=== PATIENT | male | born 1940 | race Caucasian/White ===

== ENCOUNTER 2019-08-21 11:00 | Outpatient (RCR) | payer SELFPAY | END 2019-09-20 00:01 | LOC: CR 11:00 | PROVIDERS: Family Provider Family Medicine; Referring Provider Internal Medicine Cardiovascular Disease; Visit Provider Family Medicine | DX: Z48.812 Encounter for surgical aftercare following surgery on the circulatory system (principal) ==

== ENCOUNTER 2019-09-28 10:27 | Outpatient (RCR) | payer SELFPAY | END 2019-10-21 23:59 | disposition home or self-care (01) | LOC: CR 10:27 | PROVIDERS: Family Provider Family Medicine; PCP Family Medicine; Referring Provider Internal Medicine Cardiovascular Disease; Visit Provider Internal Medicine Cardiovascular Disease | DX: Z95.1 Presence of aortocoronary bypass graft (principal) ==

== ENCOUNTER 2019-10-24 12:04 | Outpatient (RCR) | payer SELFPAY | END 2019-11-19 23:59 | disposition home or self-care (01) | LOC: CR 12:04 | PROVIDERS: Family Provider Family Medicine; PCP Family Medicine; Referring Provider Internal Medicine Cardiovascular Disease; Visit Provider Internal Medicine Cardiovascular Disease | DX: Z95.1 Presence of aortocoronary bypass graft (principal) ==

== ENCOUNTER 2019-11-21 11:46 | Outpatient (RCR) | payer SELFPAY | END 2019-12-20 23:59 | disposition home or self-care (01) | LOC: CR 11:46 | PROVIDERS: Family Provider Family Medicine; PCP Family Medicine; Referring Provider Internal Medicine Cardiovascular Disease; Visit Provider Internal Medicine Cardiovascular Disease | DX: Z95.1 Presence of aortocoronary bypass graft (principal) ==

== ENCOUNTER 2020-02-20 13:24 | Outpatient (RCR) | payer SELFPAY | END 2020-03-20 23:59 | disposition home or self-care (01) | LOC: CR 13:24 | PROVIDERS: Family Provider Family Medicine; PCP Nurse Practitioner Family; Referring Provider Internal Medicine Cardiovascular Disease; Visit Provider Internal Medicine Cardiovascular Disease | DX: Z95.1 Presence of aortocoronary bypass graft (principal) ==

== ENCOUNTER → 2020-03-29 10:54 | Outpatient (BNVA) | payer MEDICARE, SELFPAY | PROVIDERS: Family Provider Family Medicine; PCP Nurse Practitioner Family; Visit Provider Urology | DX: N47.1 Phimosis (principal); Z85.46 Personal history of malignant neoplasm of prostate | CPT/HCPCS: 81001 ==

== ENCOUNTER 2020-04-23 09:42 | Outpatient (CLI) | payer MEDICARE, SELFPAY ==
--- NOTE | 2020-04-23 09:53 | CT_ITS ---
WS: [id number] CT ABDOMEN TECHNIQUE: Noncontrast CT of the abdomen with coronal and sagittal reformatted images. CLINICAL INFORMATION: AORTIC ANEURYSM OF UNSPECIFIED SITE, WITHOUT RUPTURE COMPARISON: CTA runoff May 13, 2007 DLP: 915.[address] scans at [facility] use at least one of these dose optimization techniques: automat ed exposure control; mA and/or kV adjustment per patient size (includes targeted exams where dose is matched to clinical indication); or iterative reconstruction. FINDINGS: Infrarenal abdominal aorta measures approximately 3.6 x 3.8 cm AP by transverse. This is progressed s 2006. Noncontrast liver is normal. Normal gallbladder. Lung bases are well aerated. Noncontrast spleen is normal. Normal GE junction. Mild renal cortical atrophy. No hydronephrosis. Noncontrast pancreas is normal. N o upper abdominal lymphadenopathy. Lumbar curve convex left. CT/CT abdomen wo con [id number] IMPRESSION: 1. Infrarenal abdominal aortic aneurysm measuring 3.6x3.8 cm AP by transverse. This is progressed since 2006. 2. No hydronephrosis in either kidney. 3. No other significant findings.
== END 2020-04-23 09:43 | disposition home or self-care (01) ==
LOC: RADWPI 09:48
PROVIDERS: Family Provider Family Medicine; PCP Nurse Practitioner Family; Visit Provider Nurse Practitioner Family
DX: I71.4 Abdominal aortic aneurysm, without rupture (principal)
CPT/HCPCS: 74150

== ENCOUNTER 2020-04-24 11:19 | Outpatient (RCR) | payer SELFPAY | END 2020-05-21 23:59 | disposition home or self-care (01) | LOC: CR 11:19 | PROVIDERS: Family Provider Family Medicine; PCP Nurse Practitioner Family; Referring Provider Internal Medicine Cardiovascular Disease; Visit Provider Internal Medicine Cardiovascular Disease | DX: Z95.1 Presence of aortocoronary bypass graft (principal) ==

== ENCOUNTER 2020-05-22 14:24 | Outpatient (RCR) | payer SELFPAY | END 2020-06-20 23:59 | disposition home or self-care (01) | LOC: CR 14:24 | PROVIDERS: Family Provider Family Medicine; PCP Nurse Practitioner Family; Referring Provider Internal Medicine Cardiovascular Disease; Visit Provider Internal Medicine Cardiovascular Disease | DX: Z95.1 Presence of aortocoronary bypass graft (principal) ==

== ENCOUNTER 2020-06-22 11:09 | Outpatient (RCR) | payer SELFPAY | END 2020-07-21 23:59 | disposition home or self-care (01) | LOC: CR 11:09 | PROVIDERS: Family Provider Family Medicine; PCP Nurse Practitioner Family; Referring Provider Internal Medicine Cardiovascular Disease; Visit Provider Internal Medicine Cardiovascular Disease | DX: I25.810 Atherosclerosis of coronary artery bypass graft(s) without angina pectoris (principal) ==

== ENCOUNTER 2020-07-22 13:22 | Outpatient (RCR) | payer SELFPAY | END 2020-08-20 23:59 | disposition home or self-care (01) | LOC: CR 13:22 | PROVIDERS: Family Provider Family Medicine; PCP Nurse Practitioner Family; Referring Provider Internal Medicine Cardiovascular Disease; Visit Provider Internal Medicine Cardiovascular Disease | DX: Z95.1 Presence of aortocoronary bypass graft (principal) ==

== ENCOUNTER 2020-08-23 13:22 | Outpatient (RCR) | payer SELFPAY | END 2020-09-20 23:59 | disposition home or self-care (01) | LOC: CR 13:22 | PROVIDERS: Family Provider Family Medicine; PCP Nurse Practitioner Family; Referring Provider Internal Medicine Cardiovascular Disease; Visit Provider Internal Medicine Cardiovascular Disease | DX: Z95.1 Presence of aortocoronary bypass graft (principal) ==

== ENCOUNTER 2020-09-21 13:13 | Outpatient (RCR) | payer SELFPAY | END 2020-10-21 23:59 | disposition home or self-care (01) | LOC: CR 13:13 | PROVIDERS: Family Provider Family Medicine; PCP Nurse Practitioner Family; Referring Provider Internal Medicine Cardiovascular Disease; Visit Provider Internal Medicine Cardiovascular Disease | DX: Z95.1 Presence of aortocoronary bypass graft (principal) ==

== ENCOUNTER 2020-10-23 10:45 | Outpatient (RCR) | payer SELFPAY | END 2020-11-18 23:59 | disposition home or self-care (01) | LOC: CR 10:45 | PROVIDERS: Family Provider Family Medicine; PCP Nurse Practitioner Family; Referring Provider Internal Medicine Cardiovascular Disease; Visit Provider Internal Medicine Cardiovascular Disease | DX: Z95.1 Presence of aortocoronary bypass graft (principal) ==

== ENCOUNTER 2020-11-19 10:44 | Outpatient (RCR) | payer SELFPAY | END 2020-12-19 23:59 | disposition home or self-care (01) | LOC: CR 10:44 | PROVIDERS: Family Provider Family Medicine; PCP Nurse Practitioner Family; Referring Provider Internal Medicine Cardiovascular Disease; Visit Provider Internal Medicine Cardiovascular Disease | DX: Z95.1 Presence of aortocoronary bypass graft (principal) ==

== ENCOUNTER 2020-12-20 08:36 | Outpatient (RCR) | payer SELFPAY | END 2021-01-18 23:59 | disposition home or self-care (01) | LOC: CR 08:36 | PROVIDERS: Family Provider Family Medicine; PCP Nurse Practitioner Family; Referring Provider Internal Medicine Cardiovascular Disease; Visit Provider Internal Medicine Cardiovascular Disease | DX: Z95.1 Presence of aortocoronary bypass graft (principal) ==

== ENCOUNTER 2021-01-07 11:33 | Outpatient (CLI) | payer MEDICARE, SELFPAY ==
--- NOTE | 2021-01-07 10:15 | ECG_ITS ---
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 Baseline heart rate was 67 beats per minute. Baseline blood pressure was 144/79 millimeters of mercury. Target heart rate was 140 beats per minute. Maximum heart rate achieved was 122, which was 87 % of the target heart rate. Maximum blood pressure was 197/79 millimeters of mercury. Total exercise time was 5 minutes 40 seconds. Maximum METs achieved was 7.0, maximum VO2 was 24.5. The reason for ending the test was maximum effort achieved. The patient complained of shortness of breath during the stress test, which then resolved at the end of the test. ELECTROCARDIOGRAM: BASELINE: Sinus rhythm, normal axis, no significant ST-T changes at the baseline noted. EXERCISE: At the peak exercise level, inferolateral significant ST-T changes suggestive of ischemia noted. RECOVERY: During the recovery period, heart rate dropped appropriately. In fourth minute of recovery ST changes started normalizing. CONCLUSION: 1. Exercise capacity fair. 2. Heart rate response was appropriate. 3. Blood pressure response was hypertensive. 4. Symptoms not suggestive of ischemia. 5. Electrocardiogram portion of the stress test is suggestive of ischemia. 6. Nuclear scan will be documented separately. Electronically Signed On 02-05-2021 20:20:58 CDT by DIANNA GRIFFIN [id number]
[2021-01-07 10:16] VITALS: BMI 28.1
--- NOTE | 2021-01-07 10:16 | NMCV_ITS ---
NM flory perf SPECT r/s* [id number] Crispin Serrano Age: 80 Gender: M : 1940 Exam Date: 01/07/2021 10:16 Ordering Phys: Teddy Mae MD Technologist: AUSTIN Andrade Exam Location: [facility] Indications: DYSPNEA STRESS TEST Please see separate stress test report in [facility] for full findings IMAGE PROTOCOL Rest/Stress 1 Day Radiopharmaceutical Dose (mCi) Administration Site Administered by Rest: Tc-99m 7.9 IV AUSTIN Andrade Sestamibi Stress:Tc-99m 31.8 IV [place] Tan Sestamibi Rest: 07-Jan-2021 60 Discovery 630 Stress: 07-Jan-2021 30 Discovery 630 Radiopharmaceutical was injected at 85 % maximum heart rate. Images obtained in supine and prone position. SPECT RESULTS Technical Quality: Excellent Raw Data Analysis: Normal Image Corrections: No attenuation or motion correction applied Summed Stress Score: 4 Summed Rest Score: 0 Summed Difference Score: 4 PERFUSION FINDINGS SPECT images demonstrate homogeneous tracer distribution throughout the myocardium. FUNCTIONAL RESULTS (calculated via Gated SPECT) Stress Image LV EF (%): 73 Stress EDV (mL):74 TID: 0.93 Stress ESV (mL):20 Rest Image LV EF (%): 73 FUNCTIONAL FINDINGS: There is normal left ventricular systolic function. IMPRESSIONS Myocardial perfusion imaging is normal. EKG segment will be documented separately. Ange Conner MD (Electronically Signed) Final Date: 07 January 2021 21:20 S
[2021-01-07 12:39] VITALS: BP 133/78; PULSE 77
== END 2021-01-07 11:34 | disposition home or self-care (01) ==
LOC: CDL 11:33
PROVIDERS: PCP Family Medicine; Visit Provider Family Medicine
DX: I71.4 Abdominal aortic aneurysm, without rupture (principal); R06.00 Dyspnea, unspecified; I25.10 Atherosclerotic heart disease of native coronary artery without angina pectoris
CPT/HCPCS: 78452; 93017; A9500

== ENCOUNTER 2021-01-09 07:47 | Outpatient (CLI) | payer MEDICARE, SELFPAY ==
--- NOTE | 2021-01-09 07:54 | USCV_ITS ---
Crispin Serrano Age: 80 Gender: M : 1940 Exam Date: 01/09/2021 08:23 Ordering Phys: Teddy Mae MD Technologist: KELSEY [place]am [place] [facility] [place]ication: Dypsnea, Coronary artery disease BP: 105 / 62 HR: 49 Rhythm: Sinus Technical Quality: Adequate MEASUREMENTS (Male / Female) Normal Values 2D ECHO LV Diastolic Diameter PLAX 4.0 cm 4.2 - 5.9 / 3.9 - 5.3 cm LV Systolic Diameter PLAX 2.1 cm LV Chamber Size 4.2 cm IVS Diastolic Thickness 1.5 cm 0.6 - 1.0 / 0.6 - 0.9 cm IVS Systolic Thickness 2.0 cm LVPW Diastolic Thickness 1.1 cm 0.6 - 1.0 / 0.6 - 0.9 cm LVPW Systolic Thickness 1.5 cm RV Chamber Size 2.7 cm LVOT Diameter 2.1 cm LV Ejection Fraction 2D Teich 79.8 % LV Ejection Fraction MOD 2C 63.0 % LV Ejection Fraction 2C AL 66.5 % LA Diameter 3.5 cm LA Width 3.1 cm LA Height 5.3 cm RA Width 3.3 cm RA Height 4.9 cm Aorta at Sinotubular Diameter 2.6 cm M-MODE LV Diastolic Diameter MM 4.0 cm 4.2 - 5.9 / 3.9 - 5.3 cm LV Systolic Diameter MM 2.7 cm LV Ejection Fraction MM Teich 59.5 % IVS Diastolic Thickness MM 1.4 cm 0.6 - 1.0 / 0.6 - 0.9 cm IVS Systolic Thickness MM 1.7 cm LVPW Diastolic Thickness MM 1.9 cm 0.6 - 1.0 / 0.6 - 0.9 cm LVPW Systolic Thickness MM 2.1 cm Aortic Annulus Diameter 3.5 cm LA Ao Ratio MM 1.2 MV E Point Septal Separation 0.5 cm DOPPLER AV Peak Velocity 252.3 cm/s LVOT Peak Velocity 71.0 cm/s AV Area Cont Eq vti 1.1 cm squared AV Area Cont Eq pk 1.0 cm squared MV Area PHT 2.7 cm squared Mitral E to A Ratio 1.0 MV E' Velocity 34.0 cm/s Mitral E to MV E' Ratio 9.2 Mitral E to LV E' Lateral Ratio 7.3 Mitral E to LV E' Septal Ratio 12.4 TR Peak Velocity 230.3 cm/s TR Peak Gradient 21.2 mmHg TR Mean Velocity 191.6 cm/s TR Mean Gradient 15.2 mmHg TR Velocity Time Integral 82.2 cm TV Peak E Velocity 44.0 cm/s Right Atrial Pressure 3.0 mmHg Pulmonary Artery Systolic Pressu 24.2 mmHg PV Peak Velocity 50.0 cm/s RV Acceleration Time 0.1 s RV Ejection Time 0.3 s RV AcT/ET 0.2 FINDINGS Left Ventricle Normal left ventricular size and systolic function, EF 61 %. No regional wall motion abnormalities. Mild left ventricular hypertrophy. Right Ventricle The right ventricle is normal in size and function. Right Atrium Mildly increased right atrial size. Left Atrium Mildly increased left atrial size. Mitral Valve Trace mitral valve regurgitation. Aortic Valve Moderate aortic valve stenosis, mean gradient 14.4 mmHg, JEANNINE 1.1 cm squared. Mild aortic valve regurgitation. Tricuspid Valve [id number] tricuspid valve regurgitation. Pulmonic Valve Pulmonic valve not well visualized. Pericardium Normal pericardium without effusion. Aorta Normal ascending aorta dimension. CONCLUSIONS Normal left ventricular size and systolic function, EF 61 %. No regional wall motion abnormalities. Mild left ventricular hypertrophy. Mild biatrial enlargementTrace mitral valve regurgitation. Moderate aortic valve stenosis, mean gradient 14.4 mmHg, JEANNINE 1.1 cm squared. Mild aortic valve regurgitation. Iilh-kz-lcjlvehe tricuspid valve regurgitation. Estimated pulmonary peak systolic pressure 24 mmHg. There is no pericardial effusion. There are no intracardiac masses. Compared to the study from 07/21/2019, the aortic valve stenosis appears to be less severe Dr Joe Centeno MD [facility] (Electronically Signed) Final Date: 10 January 2021 00:15 S
--- NOTE | 2021-01-09 07:54 | USCV_ITS ---
Crispin Serrano Age: 80 Gender: M : 1940 Exam Date: 01/09/2021 08:09 Ordering Phys: Teddy Mae MD Technologist: Kareen Martin Exam Location: [facility] [place] Indication: AAA HISTORY: Diameter (cm) AP x Transverse x Length Velocity (cm/s) Waveform Prox Aorta: 2.07 x 2.37 x 66.10 Mid Aorta: 1.59 x 1.88 x 84.30 Distal Aorta: 3.68 x 3.71 x 5.54 94.20 Right Iliac Prox: 1.05 x 1.20 x 74.40 Left Iliac Prox: 1.00 x 1.05 x 127.30 Stent Prox Landing x x Aneurysmal Sac Max x x Lt Lat Sac Dim Rt Lat Sac Dim Stent Dist Landing x x Right Iliac Stent x x Left Iliac Stent x x Right Renal Art Left Renal Art FINDINGS: Comparison: 12-10-2018. See measurements listed above. Aneurysmal dilatation of the distal abdominal aorta Mild to moderate diffuse plaques in the abdominal aorta CONCLUSIONS Fusiform aneurysm of the infrarenal aorta, measuring 3.68 x 3.71 cm Mild to moderate diffuse plaques in the abdominal aorta Normal proximal common iliac artery dimensions No evidence of stenosis in the abdominal aorta Compared to the study from 12/10/2018, aneurysm size is slightly smaller Dr Joe Centeno MD [facility] (Electronically Signed) Final Date: 10 January 2021 23:12 S
== END 2021-01-09 07:48 | disposition home or self-care (01) ==
LOC: US 07:50
PROVIDERS: PCP Family Medicine; Visit Provider Family Medicine
DX: I71.4 Abdominal aortic aneurysm, without rupture (principal); R06.00 Dyspnea, unspecified; I25.10 Atherosclerotic heart disease of native coronary artery without angina pectoris; I08.3 Combined rheumatic disorders of mitral, aortic and tricuspid valves
CPT/HCPCS: 93306; 93978

== ENCOUNTER 2021-01-21 10:47 | Outpatient (RCR) | payer SELFPAY | END 2021-02-18 23:59 | disposition home or self-care (01) | LOC: CR 10:47 | PROVIDERS: Family Provider Family Medicine; PCP Family Medicine; Referring Provider Internal Medicine Cardiovascular Disease; Visit Provider Internal Medicine Cardiovascular Disease | DX: Z95.1 Presence of aortocoronary bypass graft (principal) ==

== ENCOUNTER → 2021-01-25 09:54 | Outpatient (BNVA) | payer OTHER, SELFPAY | PROVIDERS: Family Provider Family Medicine; PCP Family Medicine; Visit Provider Family Medicine | DX: Z01.812 Encounter for preprocedural laboratory examination (principal); Z20.822 Contact with and (suspected) exposure to COVID-19 | CPT/HCPCS: 87635 ==

== ENCOUNTER 2021-01-31 13:00 | Outpatient (CLI) | payer MEDICARE, SELFPAY ==
--- NOTE | 2021-01-31 13:03 | CT_ITS ---
WS: [id number] CT CHEST WITHOUT INTRAVENOUS CONTRAST HISTORY: Dyspnea for 3 weeks. TECHNIQUE: Contiguous 5 mm axial imaging performed on the thorax. Coronal and sagittal reformats are submitted. All CT scans at [facility] use at least one of these dose optimization techniq ues: automated exposure control; mA and/or kV adjustment per patient size (includes targeted exams wh ere dose is matched to clinical indication); or iterative reconstruction. CONTRAST: None DLP: 730.43 mGy.cm COMPARISON: Chest radiograph 12/23/2018 Lungs and central airway: No pulmonary mass or pneumonia. Focal area of scarring in the anterior RIGH T middle lobe similar to the prior study dated 2019. Intrapulmonary lymph node along minor fissure measures 5 mm. Additional intrapulmonary lymph node along the LEFT major fissure measures 6 mm. Pleura: Normal. No pleural effusion. Heart and pericardium: Prior CABG. There is extensive coronary artery calcifications in [place]. Heart size is not significantly enlarged. Pulmonary artery size is equal to the aorta. Heavy calcification is noted along the aortic valve plane. Mediastinum and chidi: Benign calcified lymph nodes in the mediastinum. Vessels: Moderate atherosclerosis aorta. No aneurysm. Chest wall and lower neck: Prior CABG. Upper abdomen: Small hiatal hernia. Mild perinephric stranding around each kidney with no obstruction . Heavy calcification is noted involving the origins of the renal arteries. Osseous structures: No destructive process. CT/CT chest wo con [id number] IMPRESSION: 1. No pulmonary mass or pneumonia. 2. Prior CABG. 3. Heavy calcification along the aortic valve plane. Consider evaluation by ec hocardiogram to exclude aortic stenosis. 4. Atherosclerosis thoracic aorta. 5. Heavy calcification origin of the renal arteries.
--- NOTE | 2021-01-31 13:35 | PFTS_ITS ---
Date of Study:01/31/21 Date of Dictation: 02/01/2021 MECHANICS: Prebronchodilator forced vital capacity (FVC) is normal. Prebronchodilator forced expiratory volume in one second (FEV1) is normal. FEV1/FVC is normal. There is no postbronchodilator study performed. FLOW VOLUME LOOP: Normal . LUNG VOLUMES: Total lung capacity (TLC) is normal. Residual volume (RV) is normal. DIFFUSING CAPACITY FOR CARBON MONOXIDE: Normal . INTERPRETATION: The pulmonary function tests are normal. MTDD
--- NOTE | 2021-02-05 20:34 | PM.PN ---
Subjective Subjective: Interval history: Spoke to Crispin any regarding EKG portion of the stress test which was positive. He is symptomatic with worsening of shortness of breath which could be due to ischemia. I would therefore proceed with left heart cath. I have spoken to the patient by myself over the phone he is agreeable to it. We will schedule him for outpatient angiogram. Attestations Medical Necessity Statement*: Patient will be set up for angiogram due to positive stress test Coding Level of Care Code Acute Account Manager Sales Representative for Arsalan Olvera
== END 2021-01-31 13:01 | disposition home or self-care (01) ==
LOC: RT 13:01
PROVIDERS: PCP Family Medicine; Visit Provider Family Medicine
DX: R06.00 Dyspnea, unspecified (principal); Z95.1 Presence of aortocoronary bypass graft; I70.0 Atherosclerosis of aorta; I70.1 Atherosclerosis of renal artery
CPT/HCPCS: 71250; 94010; 94726; 94729

== ENCOUNTER → 2021-02-14 10:20 | Outpatient (BNVA) | payer MEDICARE, SELFPAY | PROVIDERS: PCP Family Medicine; Visit Provider Internal Medicine Cardiovascular Disease | DX: I25.10 Atherosclerotic heart disease of native coronary artery without angina pectoris (principal); Z01.818 Encounter for other preprocedural examination; Z20.822 Contact with and (suspected) exposure to COVID-19 | CPT/HCPCS: 80048; 85025; 85610; 87635 ==

== ENCOUNTER 2021-02-19 14:23 | Outpatient (RCR) | payer SELFPAY | END 2021-03-20 23:59 | disposition home or self-care (01) | LOC: CR 14:23 | PROVIDERS: PCP Family Medicine; Referring Provider Internal Medicine Cardiovascular Disease; Visit Provider Internal Medicine Cardiovascular Disease | DX: Z95.1 Presence of aortocoronary bypass graft (principal) ==

== ENCOUNTER 2021-02-21 13:00 | Observation (INO) | payer MEDICARE, SELFPAY ==
[2021-02-21] VITALS (15 sets, daily range): BP systolic 113–153; BP diastolic 55–81; PULSE 60–72; RESP 12–22; TEMP 36.3–36.7; O2SAT 94–97; BMI 28.7
[2021-02-21] MEDS: diphenhydrAMINE 50 mg Capsule PO (09:08)
--- NOTE | 2021-02-21 10:26 | P.HP_ITS ---
Same Day Surgery H&P Indication for Procedure/HPI DATE OF PROCEDURE: February 21, 2021 CHIEF COMPLAINT/INDICATIONFOR SURGICAL PROCEDURE: I am expecting his stay not to cross more than 1 midnight PREOP DIAGNOSIS: Abnormal treadmill response, worsening of shortness of breath, chest press PLANNED PROCEDRUE: Operation Date: 02/21/21 08:30 Proposed Procedures p left Cardiac Catheterization 11229 [id number](Left) - Ange Conner MD Pleasant 81-year-old male past medical history significant for coronary artery bypass surgery 3 years ago, history of mild aortic stenosis, hypertension hyperlipidemia underwent extensive work-up including pulmonary for worsening of shortness of breath and deterioration of function in general along with chest pressure. Pulmonary function tests were not suggestive of pulmonary etiology however treadmill nuclear stress test showed inferolateral significant ST depression suggestive of possible ischemia in the inferolateral territory. It is the reason patient was brought in today for left heart cath. Patient has been explained all risk benefit and alternative for the procedure. He understand the risk for urgent emergent bypass, anaphylaxis, contrast-induced nephropathy, stroke, major minor bleed requiring transfusion and worse case scenario . He would like to proceed with it. We will also assess LV function with aortic valve gradient since he has aortic stenosis. Medications/Allergies* Home Medications Medication Instructions Recorded Confirmed Type cholecalciferol (vitamin D3) 25 1,000 unit PO DAILY 11/24/19 02/20/21 History mcg (1,000 unit) capsule coenzyme Q10 100 mg capsule 100 mg PO DAILY 11/24/19 02/20/21 History omega-3 fatty acids 1,000 mg 1,000 mg PO DAILY 11/24/19 02/20/21 History capsule cetirizine 10 mg tablet 5 mg PO DAILY PRN 03/29/20 02/20/21 History lactobacillus combination no.8 3 3,000 mmu cells PO DAILY 03/29/20 02/20/21 History billion cell capsule Zetia 10 mg PO DAILY 02/20/21 02/20/21 History amlodipine 2.5 mg PO DAILY 02/20/21 02/20/21 History aspirin 325 mg PO DAILY 02/20/21 02/20/21 History Allergies/Adverse Reactions Allergy/AdvReac Type Severity Reaction Status Date / Time atorvastatin [From Lipitor] Allergy Unknown Unknown Verified 04/02/20 14:32 Iodinated Contrast Media Allergy Unknown Unknown Verified 04/02/20 14:32 iodine Allergy Unknown Unknown Verified 04/02/20 14:32 rosuvastatin [From Crestor] Allergy Unknown Unknown Verified 04/02/20 14:32 simvastatin [From Zocor] Allergy Unknown Unknown Verified 04/02/20 14:32 Pertinent History/Comorbid Conditions* Medical History (Updated 05/25/20 @ 18:07 by Ange Conner MD) AAA (abdominal aortic aneurysm) CAD (coronary artery disease) History of CVA (cerebrovascular accident) History of prostate cancer History of TIA (transient ischemic attack) HTN (hypertension) Hx of sigmoidoscopy Hyperlipidemia Murmur Phimosis Surgical History (Updated 03/29/20 @ 17:04 by Stepan Best MD) History of open heart surgery S/P CABG (coronary artery bypass graft) S/P prostatectomy S/P shoulder surgery S/P tonsillectomy and adenoidectomy S/P vasectomy Family History (Updated 11/24/19 @ 10:29 by Daysi Lara LPN) Father, Age 72 [place] Mother, Age 102 dementia Diabetes Mother CAD (coronary artery disease) Dementia Mother Myocardial infarction Father Grandfather Social History Smoking and tobacco status: never smoked Alcohol intake: never Marital status: Current occupational status: retired History of recent travel: No Pertinent Exam Findings alert, oriented x 3 and clear to auscultation bilaterally GENERAL: Patient is alert, awake and oriented x3. NECK: No jugular vein distension. HEENT: No cyanosis. No icterus. No pallor. HEART: Regular S1 and S2. 2/6 murmur, rub or gallop. LUNGS: Clear to auscultate bilaterally. ABDOMEN: Soft, nontender and nondistended. Positive bowel sounds. No guarding, rebound or tenderness. CENTRAL NERVOUS SYSTEM: Grossly nonfocal. EXTREMITIES: Lower extremities with trace edema bilaterally. Conscious Sedation Assessment PATIENT ASSESSED PRIOR TO SEDATION, WITH NO CHANGE NOTED: Yes AIRWAY EVAL/ANESTHESIA PLAN: ASA II and Risks, benefits & alternatives of sedation and/or procedure discussed Recommendations Surgery/Procedure today Coding Level of Care Code Acute Digital Publishing Specialist for Arsalan Olvera
--- NOTE | 2021-02-21 11:17 | SUR.PHASEI ---
RECOVERY HOLDING NOTE THE PATIENT WAS WAKEN OFF THE TABLE FOR A STEMI. RECEIVED INTO CPRU ROOM 4 WITH SPOUSE AT BEDSIDE. BILLPOSTING SUPERVISOR PLACED. VITAL SIGNS OBTAINED. PATIENT DROWSY FROM PROCEDURE SEDATION. AWAKENS EASILY TO VOICE. A & O X 3. 6 FR SHEATH SUTURED INTO THE RIGHT GRION TO PRESSURE BAG. RIGHT GROIN SOFT WITH NO BLEEDING OR HEMATOMA NOTED. DRESSING D & I. WILL CONTINUE TO MONITOR.
--- NOTE | 2021-02-21 11:57 | SUR.PHASEI ---
DR GRIFFIN AT BEDSIDE DR GRIFFIN IN TO UPDATE THE PATIENT AND FAMILY. WILL GO BACK TO THE [employer] DEVELOPER SHORTLY TO FINISH THE ANGIOGRAM. PATIENT, HIS SPOUSE AND DAUGHTER VERBALIZE THEIR UNDERSTANDING. NO OTHER ASSESSMENT CHANGES AT THIS TIME.
--- NOTE | 2021-02-21 12:05 | XACV_ITS ---
Ht: 173 cm Wt: 86 kg BSA: 2.05 m2 Gender: Male : 1940 Any Known Allergies: Other Exam Priority: Routine Procedure(s): Procedure Description: Diagnostic procedure Procedure Description: Left Heart Catheterization Procedure Description: Diagnostic procedure Procedure Description: Left Heart Catheterization Diagnostic Cath Status: Elective Diagnostic Findings * Left Main has no disease. * Circumflex has no disease. * Proximal Left Anterior Descending: total occlusion, SANDI: 0 flow. * Left Internal Mammary Artery to Mid Left Anterior Descending graft: patent. * Proximal Right Coronary Artery to Mid Right Coronary Artery: severe 90% stenosis, SANDI: 3 flow. * Ascending Aorta to Posterior Descending Right graft: patent. * Two grafts visualized. * Coronary angiography shows right dominance. Conclusions 1. There is total occlusion coronary artery disease with two vessel disease. 2. Two coronary grafts visualized: all grafts patent. 3. Hyperdynamic left ventricular systolic function. Ejection fraction of 70%. 4. Indication for left heart cath: Aortic valve stenosis possible moderate to severe, worsening of shortness of breath despite optimization of medicine not explained by pulmonary etiology. It was thought that patient may have worsening of aortic stenosis and possible significant coronary artery disease. Therefore we decided to proceed with angiogram. We were not able to cross the aortic valve despite of using straight wire. We will proceed with transesophageal echocardiogram as an outpatient. Coronary angiogram will be as follows.. Recommendations * Continue current medical management and risk factor modification. Diagnostic RX Recommendation: medical therapy and/or counseling Ventriculography Ejection Fraction: 70.0 % Pressures Phase:Rest AO : 151 / 38 ( 85 ) @ 11:43:00 AM LV : 182 / -6 / 10 @ 11:40:00 AM 167 / -8 / 11 @ 11:42:00 AM 170 / - @ 11:43:00 AM Clinical Evaluation EBL: 5mL-10mL Procedural Details Procedure Consent Obtained. Admit Source: Out Patient. Pre-Procedure Time Out. Identified patient by full name and date of as verbalized by the patient/guarantor. Does the consent match the physician's order: Yes. Accurate & Complete Informed Consent: Yes. Inpatient/Outpatient History & Physical on Chart: Yes. If H&P is completed, is and addenduem needed: Yes; If yes, is the addendum complete: N/A. Visualize and Verify Site with Patient/Guarantor: N/A. Relevant Radiology Images available: N/A. Pre-op teaching completed and patient verbalized understanding. The risks, benefits, and alternatives of sedation and/or procedure were discussed by physician. The patient agrees to continue. Procedure started. Correct patient, site and procedure confirmed by cath team. PERRLA. Strong, equal hand online services manager bilaterally. Lungs clear x 5 lobes. IV Site on Arrival: 20 gauge in the left anticubital. Pre Procedural Pulses: bilateral dorsalis pedis was 3+. Pre Procedural Pulses: right posterior tibial was 1+. Pre Procedural Pulses: left posterior tibial was 3+. Pre Procedural Pulses: bilateral radial was 3+. Oxygen started at 2liters/min via nasal canula. bilateral groins was prepped with chloroprep then draped in the usual sterile fashion. Physician notified. Baseline sample Acquired. HR: 0 BPM. Physician scrubbed in. Immediate Pre-Procedure Time Out. Correct Patient: Yes; Correct Procedure: Yes; Correct Site: Yes; Correct Patient Position: Yes; Correct Supplies: Yes; Dried Flammable Prep: Yes; Blood Products Available: N/A;. Lidocaine 1% infiltrated to the right groin. Arterial access obtained with micropuncture set. A 5 marshallese JL4 catheter in over wire. Multiple views taken of left coronary artery. Catheter out. A 5 marshallese JR4 catheter in over wire. Multiple views taken of right coronary artery. SVG's to RCA visualized and patent. Catheter out. Sheath(s) sutured into position with 2-0 silk and sterile 4x4's and Op-site applied over the site. No oozing or signs and symptoms of hematoma noted. Post Procedure: Pulses reassessed and unchanged. PERRLA. Strong, equal hand online services manager bilaterally. No VTE prophylaxis required. Medication's Wasted: Lidocaine 1% = 12 mL. Medication's Wasted: Heparin = 4000 units. Medication's Wasted: Other = fentanyl 50 mg. A Suture was successful obtaining hemostatsis at the Right Femoral artery insertion site. Total IV fluids: 50 mL. Contrast type used: Omnipaque 300 mgI/mL, 500 mL bottle. Omnipaque 100mL. Complications: none. Estimated blood loss: 5mL-10mL. Procedure completed. Patient transferred by bed to CPRU. Vital chart was stopped. Pre-Procedure Time Out. Identified patient by full name and date of as verbalized by the patient/guarantor. Does the consent match the physician's order: Yes. Accurate & Complete Informed Consent: Yes. Inpatient/Outpatient History & Physical on Chart: Yes. If H&P is completed, is and addenduem needed: Yes; If yes, is the addendum complete: N/A. Visualize and Verify Site with Patient/Guarantor: N/A. Relevant Radiology Images available: N/A. Pre-op teaching completed and patient verbalized understanding. The risks, benefits, and alternatives of sedation and/or procedure were discussed by physician. The patient agrees to continue. Procedure started. The patient was taken off the table in his previous case due to a STEMI. He is now brought back to finish exam. Physician arrived. Physician scrubbed in. Immediate Pre-Procedure Time Out. Correct Patient: Yes; Correct Procedure: Yes; Correct Site: Yes; Correct Patient Position: Yes; Correct Supplies: Yes; Dried Flammable Prep: Yes; Blood Products Available: N/A;. A 5 marshallese Angled Pig catheter in over wire. EDP Sample taken: LV 182/-7,10; HR: 84 BPM; SpO2: 97%. LV gram performed in HEATON @ 10 mL/second for a total of 30 mL. EDP Sample taken: LV 167/-9,11; HR: 63 BPM; SpO2: 96%. Pullback taken: LV Off; AO Off; Mean: , Peak to Peak: , SEP: ; HR: 65 BPM; SpO2: 97%. EDP Sample taken: LV 170/-11,11; HR: 65 BPM; SpO2: 97%. Pullback taken: LV Off; AO Off; Mean: , Peak to Peak: , SEP: ; HR: 65 BPM; SpO2: 97%. Catheter removed over the standard wire. Arterial sheath flushed and connected to tranducer and pressure bag with heparinized saline. PERRLA. Strong, equal hand online services manager bilaterally. No VTE prophylaxis required. Total IV fluids: 50 mL. Contrast type used: Omnipaque 300 mgI/mL, 500 mL bottle. Procedure completed. Patient transferred by bed to 1st floor. Vital chart was stopped. Access Site Site: Right Femoral artery Sheath Size: 6 Fr Hemostasis Method: Suture Hemostasis Success: Successful Procedure Medications Start: 10:41 AM Stop: 10:41 AM Medication: Versed Amount: 1 mg Route: I.V. Start: 10:41 AM Stop: 10:41 AM Medication: Fentanyl Amount: 50 mcg Route: I.V. Start: 10:44 AM Stop: 10:44 AM Medication: Versed Amount: 1 mg Route: I.V. I, the attending physician, have reviewed and verified all procedure medications. Yes, all medications given per verbal order History/Risk Factors Hypertension: Yes Dyslipidemia: Yes Tobacco Use: Never Report Signatures Finalized by Ange Conner MD on 02/24/2021 09:35 AM
--- NOTE | 2021-02-21 15:12 | PC.NURSE ---
At 1324 right groin sheath removed. Manual pressure held x 20 inutes. Small amont of oozing from site. Site dressed with 2x2 and opsite. Patient instructed not to bend right leg for a minimum of 4 hrs. Patient and provided with turkey sandwhich, ice water and snacks. Patient denies pain and nausea.
[2021-02-21] MEDS: metoprolol tartrate 25 mg Tablet PO (17:44)
--- NOTE | 2021-02-21 22:05 | PC.NURSE ---
Patient was verbally explained discharge instructions and verbally states understanding. Patient is A & O x4. Has no complaints of pain. Taken via wheelchair to spouse waiting outside.
== END 2021-02-21 22:07 | disposition home or self-care (01) ==
LOC: CSU 13:18
PROVIDERS: Admitting Provider Internal Medicine Cardiovascular Disease; PCP Family Medicine; Visit Provider Internal Medicine Cardiovascular Disease
DX: I25.10 Atherosclerotic heart disease of native coronary artery without angina pectoris (principal); R94.39 Abnormal result of other cardiovascular function study; Z95.5 Presence of coronary angioplasty implant and graft; I10 Essential (primary) hypertension; E78.5 Hyperlipidemia, unspecified; Z86.73 Personal history of transient ischemic attack (TIA), and cerebral infarction without residual deficits; Z85.46 Personal history of malignant neoplasm of prostate
CPT/HCPCS: 36415; 93459; C1769; C1887; C1894; G0378; J1644; J2250; J3010; J7030; Q0163; Q9967

== ENCOUNTER → 2021-03-01 12:07 | Outpatient (BNVA) | payer MEDICARE, SELFPAY | PROVIDERS: PCP Family Medicine; Visit Provider Nurse Practitioner Family | DX: I25.10 Atherosclerotic heart disease of native coronary artery without angina pectoris (principal) | CPT/HCPCS: 80048 ==

== ENCOUNTER 2021-03-21 14:06 | Outpatient (RCR) | payer SELFPAY | END 2021-04-20 23:59 | disposition home or self-care (01) | LOC: CR 14:06 | PROVIDERS: PCP Family Medicine; Referring Provider Internal Medicine Cardiovascular Disease; Visit Provider Internal Medicine Cardiovascular Disease | DX: Z95.1 Presence of aortocoronary bypass graft (principal) ==

== ENCOUNTER 2021-04-22 14:43 | Outpatient (RCR) | payer SELFPAY | END 2021-05-21 23:59 | disposition home or self-care (01) | LOC: CR 14:43 | PROVIDERS: PCP Family Medicine; Referring Provider Internal Medicine Cardiovascular Disease; Visit Provider Internal Medicine Cardiovascular Disease | DX: Z95.1 Presence of aortocoronary bypass graft (principal) ==

== ENCOUNTER → 2021-05-14 08:14 | Outpatient (BNVA) | payer MEDICARE, SELFPAY | PROVIDERS: PCP Family Medicine; Visit Provider Urology | DX: Z12.5 Encounter for screening for malignant neoplasm of prostate (principal); Z85.46 Personal history of malignant neoplasm of prostate; I25.10 Atherosclerotic heart disease of native coronary artery without angina pectoris; N39.9 Disorder of urinary system, unspecified | CPT/HCPCS: 81003; G0103 ==

== ENCOUNTER 2021-05-23 12:52 | Outpatient (RCR) | payer SELFPAY | END 2021-06-20 23:59 | disposition home or self-care (01) | LOC: CR 12:52 | PROVIDERS: PCP Family Medicine; Referring Provider Internal Medicine Cardiovascular Disease; Visit Provider Internal Medicine Cardiovascular Disease | DX: Z95.1 Presence of aortocoronary bypass graft (principal) ==

== ENCOUNTER 2021-06-21 09:00 | Outpatient (RCR) | payer SELFPAY | END 2021-07-21 23:59 | disposition home or self-care (01) | LOC: CR 09:00 | PROVIDERS: PCP Family Medicine; Referring Provider Internal Medicine Cardiovascular Disease; Visit Provider Internal Medicine Cardiovascular Disease | DX: Z95.1 Presence of aortocoronary bypass graft (principal) ==

== ENCOUNTER 2021-07-22 13:01 | Outpatient (RCR) | payer SELFPAY | END 2021-08-20 23:59 | disposition home or self-care (01) | LOC: CR 13:01 | PROVIDERS: PCP Family Medicine; Referring Provider Internal Medicine Cardiovascular Disease; Visit Provider Internal Medicine Cardiovascular Disease | DX: Z95.1 Presence of aortocoronary bypass graft (principal) ==

== ENCOUNTER 2021-08-21 10:03 | Outpatient (RCR) | payer SELFPAY | END 2021-09-20 23:59 | disposition home or self-care (01) | LOC: CR 10:03 | PROVIDERS: PCP Family Medicine; Referring Provider Internal Medicine Cardiovascular Disease; Visit Provider Internal Medicine Cardiovascular Disease | DX: Z95.1 Presence of aortocoronary bypass graft (principal) ==

== ENCOUNTER 2021-09-04 06:48 | Emergency (ER) | payer MEDICARE, SELFPAY ==
[2021-09-04 06:51] VITALS: BP 183/83; PULSE 57; RESP 18; TEMP 36.3; O2SAT 99; BMI 28.1
[2021-09-04 07:09] VITALS: BP 159/89; PULSE 53; RESP 18; O2SAT 95
--- NOTE | 2021-09-04 07:09 | ECG_ITS ---
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 Measurements Intervals [place] Rate: 52 P: -34 WI: 163 QRS: 39 QRSD: 101 T: 83 QT: 438 QTc: 409 Interpretive Statements SINUS BRADYCARDIA Diffuse early repolarization changes especially in the inferolateral leads POSSIBLE RIGHT VENTRICULAR CONDUCTION DELAY [RSR (QR) IN V1/V2] Compared to ECG 08/30/2017 14:48:24 Sinus rhythm no longer present T-wave abnormality no longer present Electronically Signed On 09-04-2021 21:58:57 CONTACT LENS BLOCKER AND CUTTER by Joe Centeno M.D. [id number]
--- NOTE | 2021-09-04 07:09 | XR_ITS ---
WS: [id number] XR chest 1V portable [id number] REASON FOR EXAM: Chest pain FINDINGS: Moderate tortuosity and ectasia of the thoracic aorta without aneurysmal dilatation. Status post sugey nary artery bypass surgery. Normal heart size. No active pulmonary parenchymal or pleural disease. Deformity of the right sixth anterolateral rib indicative of fracture, unknown chronicity. Not readil y identifiable on previous examination of 01/02/2019. No other significant interval change or new finding. XR/XR chest 1V portable [id number] IMPRESSION: No acute cardiopulmonary disease. Right rib fracture, unknown chronicity, not previously identified.
--- NOTE | 2021-09-04 07:11 | W.ED.CHESTPA ---
HPI - Chest Pain General: Chief Complaint: Chest Pain Stated Complaint: CP Time Seen by Provider: 09/04/21 06:53 History of Present Illness: HPI narrative: 81-year-old male presents emergency room complaining of chest pain. He states he went to bed last night around 9:00 he woke up at a little after 930 had had chest discomfort when he moved his arms. If his arms remains still he did not any chest pain. Is not reproducible with palpation. Does not radiate anywhere he did not get diaphoretic dyspneic and not have any nausea or vomiting. He has a known history of heart disease previously had a bypass he states he had a stress test and echo earlier this year. Stress test is unremarkable to the echocardiogram showed some valvular disease which Dr. Conner has been monitoring through the clinic. He has not taken anything for this chest pain other than moving his arm does not notice anything that exacerbates it or relieves it. MD complaint: chest pain Pertinent past history: coronary artery disease Onset (ago): hour(s) Timing of current episode: episodic Onset: during rest Pain location: left chest Pain radiation: none Severity: mild Quality: aching Relieving factors: rest Exacerbating factors: movement (moving ) Associated symptoms: Deny abdominal pain, diaphoresis, dyspnea, fever(s), leg edema, nausea, palpitations, sense of impending doom, syncope or vomiting Treatment prior to arrival: none Review of Systems Const: Denies: fever(s) or diaphoresis ENMT: Denies: throat pain, ear or mastoid pain, nasal discharge or nasal congestion Card: Denies: palpitations or syncope Resp: Denies: dyspnea GI: Denies: abdominal pain, nausea or vomiting : Denies: flank pain, dysuria, urinary frequency or urinary urgency Skin/Breast: Denies: rash or pruritus PFSH ED PFSH: Medical History AAA (abdominal aortic aneurysm) CAD (coronary artery disease) History of CVA (cerebrovascular accident) History of prostate cancer History of TIA (transient ischemic attack) HTN (hypertension) Hx of sigmoidoscopy Hyperlipidemia Murmur Phimosis Surgical History History of open heart surgery S/P CABG (coronary artery bypass graft) S/P prostatectomy S/P shoulder surgery S/P tonsillectomy and adenoidectomy S/P vasectomy Family History Father , Age 72 [place] Myocardial infarction Grandfather Myocardial infarction Mother , Age 102 dementia Diabetes Dementia Other CAD (coronary artery disease) Social History Alcohol intake: never Marital status: Current occupational status: retired History of recent travel: No Physical Exam Const: GENERAL APPEARANCE: cooperative and comfortable ORIENTATION/CONSCIOUSNESS: Yes awake, Yes oriented to person, Yes oriented to place and Yes oriented to time HENMT: COMMON NORMALS: normocephalic, atraumatic and hearing grossly normal bilaterally HEAD & SCALP: normocephalic and atraumatic Neck/C-Spine: COMMON NORMALS: no JVD Lymph: LYMPHATIC: no lymphadenopathy noted and no lymphedema noted Resp: COMMON NORMALS: normal respiratory effort, No retractions, No use of accessory muscles and clear to auscultation bilaterally AUSCULTATION: clear to auscultation bilaterally Cardio: COMMON NORMALS: no JVD, regular rate and regular rhythm RATE: regular rate RHYTHM: regular rhythm HEART SOUNDS: Murmur heart sound present systolic Location: right sternal border Intensity: IV/ GI: COMMON NORMALS: Soft to palpation and No hepatosplenomegaly present AUSCULTATION: Yes normoactive bowel sounds PALPATION: Yes Soft to palpation, No Tenderness to palpation present (GI), No Guarding due to palpation present (GI) and Yes No hepatosplenomegaly present Extremity: COMMON NORMALS: normal to inspection, capillary refill normal, no clubbing, cyanosis or edema, no calf tenderness and no pedal edema Neuro: SENSORIUM/ORIENTATION: Yes oriented to person, Yes oriented to place and Yes oriented to time Skin: COMMON NORMALS: no rashes or lesions noted GENERAL SKIN EXAM: no rashes or lesions noted Course Vital Signs: Vital signs: Vital Signs Temperature 97.4 F L 09/04/21 06:51 Pulse Rate 57 L 09/04/21 11:35 Respiratory Rate 22 H 09/04/21 11:35 Blood Pressure 159/89 09/04/21 07:09 Pulse Oximetry 95 09/04/21 11:35 MDM - Chest Pain MDM Narrative: Medical decision making narrative: Labs and imaging and EKG reviewed on chart no acute EKG changes normal troponin. Pain is reproducible with motion in the arms and palpation across the chest. This is musculoskeletal anterior chest wall pain. We will go ahead and discharge patient home he can use Tylenol ice or heat as needed follow-up with his primary care doctor if not improving or worsens recheck. Lab Data: Labs: Lab Results 09/04/21 09/04/21 09/04/21 07:32 07:32 07:32 WBC 5.8 10^3/uL 10^3/ uL (4.0-10.0) RBC 4.32 10^6/uL 10^6 /uL (4.1-5.3) Hgb 14.0 g/dL g/dL (11.7-16.6) Hct 40.8 % L % (42.0-52.0) MCV 94.4 fl H fl (80-94) MCH 32.4 pg pg (28.0-34.0) MCHC 34.3 g/dL g/dL (30.0-36.0) RDW 12.3 % % (12.1-15.1) Plt Count 298 10^3/cmm 10^3 /cmm (130-400) MPV 9.9 fL fL (7.4-10.4) Neut % (Auto) 65.4 % % Lymph % (Auto) 19.7 % % [place] % (Auto) 8.6 % % Eos % (Auto) 5.0 % % Baso % (Auto) 1.0 % % Neut # (Auto) 3.79 10^3/uL 10^3 /uL (1.8-7.7) Lymph # (Auto) 1.1 10^3/uL 10^3/ uL (0.8-4.8) [place] # (Auto) 0.5 10^3/uL 10^3/ uL (0.2-0.9) Eos # (Auto) 0.3 10^3/uL 10^3/ uL (0.0-0.8) Baso # (Auto) 0.1 10^3/uL 10^3/ uL (0.0-0.1) Nucleated RBC % (a uto) 0 % % Nucleated RBCs # 0.0 /100WBC /100W BC Sodium 135 mmol/L L mmol /L (136-145) Potassium 4.1 mmol/L mmol/L (3.5-5.1) Chloride 99 mmol/L mmol/L (98-107) Carbon Dioxide 22 mmol/L mmol/L (22-29) Anion Gap 18.1 (5-19) BUN 9 mg/dL mg/dL (8-23) Creatinine 0.8 mg/dL mg/dL (0.7-1.2) GFR Calculation Not Reportable Glucose 81 mg/dL mg/dL (65-115) Calculated Osmolal ity 278 mOsm/kg L mOs m/kg (285-295) Calcium 8.7 mg/dL mg/dL (8.5-10.5) Total Bilirubin 0.2 mg/dL mg/dL (0.15-1.2) AST 24 U/L U/L (0-40) ALT 20 U/L U/L (0-41) Alkaline Phosphata se 68 IU/L IU/L (40-130) Creatine Kinase 125 U/L U/L (39-308) Troponin T Baselin e 9 ng/L ng/L (0-15) Troponin T 120 Min [place] Troponin T NT-Pro-B Natriuret Pep 152 pg/mL pg/mL (0-450) Total Protein 6.8 g/dL g/dL (6.6-8.7) Albumin 4.2 g/dL g/dL (3.5-5.2) Globulin 2.6 g/dL g/dL (1.3-4.6) 09/04/21 10:40 WBC RBC Hgb Hct MCV MCH MCHC RDW Plt Count MPV Neut % (Auto) Lymph % (Auto) [place] % (Auto) Eos % (Auto) Baso % (Auto) Neut # (Auto) Lymph # (Auto) [place] # (Auto) Eos # (Auto) Baso # (Auto) Nucleated RBC % (a uto) Nucleated RBCs # Sodium Potassium Chloride Carbon Dioxide Anion Gap BUN Creatinine GFR Calculation Glucose Calculated Osmolal ity Calcium Total Bilirubin AST ALT Alkaline Phosphata se Creatine Kinase Troponin T Baselin e Troponin T [address] [place] 7.90 ng/L ng/L (0-15) [place] Troponin T -1.10 ABS# L ABS# (0-10) NT-Pro-B Natriuret Pep Total Protein Albumin Globulin Discharge Plan Discharge Patient Disposition: Home Clinical Impression: Anterior chest wall pain Condition: Stable Prescriptions: No Action turmeric 400 mg capsule 400 mg PO DAILY RF: 0 ezetimibe 10 mg tablet 10 mg PO DAILY RF: 0 metoprolol tartrate 25 mg tablet 25 mg PO BID RF: 0 omega-3 fatty acids [Fish Oil Concentrate] 1,000 mg capsule 1,000 mg PO DAILY RF: 0 cholecalciferol (vitamin D3) 25 mcg (1,000 unit) capsule 1,000 unit PO DAILY RF: 0 coenzyme Q10 [Co Q-10] 100 mg capsule 100 mg PO DAILY RF: 0 Adult Probiotic 3 billion cell capsule 3,000 mmu cells PO DAILY RF: 0 cetirizine [Allergy Relief (cetirizine)] 10 mg tablet 10 mg PO DAILY PRN (Reason: Runny Nose) RF: 0 amlodipine 5 mg tablet 2.5 mg PO DAILY Qty: 45 RF: 2 aspirin 325 mg Tablet 325 mg PO DAILY Qty: 0 RF: 0 Discharge Orders: Discharge ED (Routine); Ordered 09/04/21 Ordered By: Primo Rodriguez Referrals: Teddy Mae MD [Primary Care Provider] - Patient Instructions: Opioid Safety Activity Restrictions/Additional Instructions: Follow-up with your doctor within the next week. Coding Level of Care Code ED Emotionally Impaired Teacher for Arsalan Fwd Exam Comprehensive
[2021-09-04] MEDS: aspirin 81 mg Chew Tablet 324 MG PO (07:20)
[2021-09-04 07:38] LABS: Basophils # 0.1 10^3/uL (0.0-0.1); Eosinophils # 0.3 10^3/uL (0.0-0.8); Hematocrit 40.8 % (42.0-52.0); Lymphocytes # 1.1 10^3/uL (0.8-4.8); Lymphocytes % 19.7 %; Mean Corpuscular HGB Conc 34.3 g/dL (30.0-36.0); Mean Corpuscular Hemoglobin 32.4 pg (28.0-34.0); Mean Corpuscular Volume 94.4 fl (80-94); Mean Platelet Volume 9.9 fL (7.4-10.4); Monocytes # 0.5 10^3/uL (0.2-0.9); Monocytes % 8.6 %; Neutrophils # 3.79 10^3/uL (1.8-7.7); Neutrophils % 65.4 %; Nucleated Red Blood Cells % 0 %; Platelet Count 298 10^3/cmm (130-400); Red Blood Count 4.32 10^6/uL (4.1-5.3); Red Cell Distribution Width 12.3 % (12.1-15.1); White Blood Count 5.8 10^3/uL (4.0-10.0)
[2021-09-04 08:00] LABS: Troponin(5th) Baseline 9 ng/L (0-15)
[2021-09-04 08:05] LABS: Alanine Aminotransferase 20 U/L (0-41); Albumin Level 4.2 g/dL (3.5-5.2); Alkaline Phosphatase 68 IU/L (40-130); Anion Gap 18.1 (5-19); Aspartate Amino Transferase 24 U/L (0-40); Blood Urea Nitrogen 9 mg/dL (8-23); Calcium 8.7 mg/dL (8.5-10.5); Carbon Dioxide 22 mmol/L (22-29); Chloride 99 mmol/L (98-107); Creatine Phosphokinase 125 U/L (39-308); Globulin 2.6 g/dL (1.3-4.6); Glucose 81 mg/dL (65-115); NT Pro B Type Natriuretic Pept 152 pg/mL (0-450); Osmolality Calculated 278 mOsm/kg (285-295); Potassium 4.1 mmol/L (3.5-5.1); Sodium 135 mmol/L (136-145); Total Bilirubin 0.2 mg/dL (0.15-1.2); Total Protein 6.8 g/dL (6.6-8.7)
--- NOTE | 2021-09-04 09:09 | ECG_ITS ---
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 Measurements Intervals [place] Rate: 56 P: -71 NE: 143 QRS: 71 QRSD: 102 T: 77 QT: 430 QTc: 418 Interpretive Statements ECTOPIC ATRIAL BRADYCARDIA POSSIBLE RIGHT VENTRICULAR CONDUCTION DELAY [RSR (QR) IN V1/V2] ABNORMAL RHYTHM ECG Compared to ECG 08/30/2017 14:48:24 Bradycardia, nonsinus now present Sinus rhythm no longer present T-wave abnormality no longer present Electronically Signed On 09-04-2021 22:10:27 COKE INSPECTOR by Joe Centeno M.D. [id number] aries
[2021-09-04 11:35] VITALS: PULSE 57; RESP 22; O2SAT 95
== END 2021-09-04 11:36 | disposition home or self-care (01) ==
PROVIDERS: Emergency Provider Family Medicine; PCP Family Medicine
DX: R07.89 Other chest pain (principal); Z79.82 Long term (current) use of aspirin; I25.10 Atherosclerotic heart disease of native coronary artery without angina pectoris; Z86.73 Personal history of transient ischemic attack (TIA), and cerebral infarction without residual deficits; Z85.46 Personal history of malignant neoplasm of prostate; I10 Essential (primary) hypertension; E78.5 Hyperlipidemia, unspecified; Z95.1 Presence of aortocoronary bypass graft
CPT/HCPCS: 36415; 71045; 80053; 82550; 83880; 84484; 85025; 93005; 99283

== ENCOUNTER 2021-09-23 08:44 | Outpatient (RCR) | payer SELFPAY | END 2021-10-21 23:59 | disposition home or self-care (01) | LOC: CR 08:44 | PROVIDERS: PCP Family Medicine; Referring Provider Internal Medicine Cardiovascular Disease; Visit Provider Internal Medicine Cardiovascular Disease | DX: Z95.1 Presence of aortocoronary bypass graft (principal) ==

== ENCOUNTER 2021-10-28 15:02 | Outpatient (RCR) | payer SELFPAY | END 2021-11-18 23:59 | disposition home or self-care (01) | LOC: CR 15:02 | PROVIDERS: PCP Family Medicine; Referring Provider Internal Medicine Cardiovascular Disease; Visit Provider Internal Medicine Cardiovascular Disease | DX: Z95.1 Presence of aortocoronary bypass graft (principal) ==

== ENCOUNTER 2021-11-19 11:42 | Outpatient (RCR) | payer SELFPAY | END 2021-12-19 23:59 | disposition home or self-care (01) | LOC: CR 11:42 | PROVIDERS: PCP Family Medicine; Referring Provider Internal Medicine Cardiovascular Disease; Visit Provider Internal Medicine Cardiovascular Disease | DX: Z95.1 Presence of aortocoronary bypass graft (principal) ==

== ENCOUNTER 2021-12-03 13:29 | Outpatient (CLI) | payer MEDICARE, SELFPAY ==
--- NOTE | 2021-12-03 13:15 | USCV_ITS ---
Rick Serrano Age: 81 Gender: M : 1940 Exam Date: 12/03/2021 13:44 Ordering Phys: Kasey Garcia Technologist: TIMOTHY Exam Location: [facility] [place] Indication: NONRHEUMATIC AO VALVE STENOSIS BP: 110 / 65 HR: 52 Rhythm: Sinus Technical Quality: Adequate MEASUREMENTS (Male / Female) Normal Values 2D ECHO LV Diastolic Diameter PLAX 3.8 cm 4.2 - 5.9 / 3.9 - 5.3 cm LV Systolic Diameter PLAX 2.3 cm IVS Diastolic Thickness 1.6 cm 0.6 - 1.0 / 0.6 - 0.9 cm IVS Systolic Thickness 2.1 cm LVPW Diastolic Thickness 1.5 cm 0.6 - 1.0 / 0.6 - 0.9 cm LVPW Systolic Thickness 2.0 cm LVOT Diameter 2.0 cm LV Ejection Fraction 2D Teich 70.0 % LV Ejection Fraction MOD 2C 72.3 % LV Ejection Fraction 2C AL 73.3 % LA Diameter 3.8 cm LA Width 4.0 cm LA Height 5.5 cm RA Width 3.6 cm RA Height 4.8 cm Aorta at Sinotubular Diameter 2.3 cm M-MODE Aortic Annulus Diameter 3.3 cm LA Ao Ratio MM 1.1 MV E Point Septal Separation 0.3 cm DOPPLER AV Peak Velocity 286.8 cm/s LVOT Peak Velocity 106.0 cm/s AV Area Cont Eq vti 1.1 cm squared AV Area Cont Eq pk 1.1 cm squared MV Peak Velocity 78.0 cm/s MV Area PHT 2.9 cm squared Mitral E to A Ratio 0.9 MV E' Velocity 43.5 cm/s Mitral E to MV E' Ratio 8.1 Mitral E to LV E' Lateral Ratio 6.9 Mitral E to LV E' Septal Ratio 10.0 TR Peak Velocity 239.3 cm/s TR Peak Gradient 22.9 mmHg TR Mean Velocity 175.4 cm/s TR Mean Gradient 12.8 mmHg TR Velocity Time Integral 76.0 cm TV Peak E Velocity 58.0 cm/s Right Atrial Pressure 3.0 mmHg Pulmonary Artery Systolic Pressu 25.9 mmHg PV Peak Velocity 73.0 cm/s RV Acceleration Time 0.1 s RV Ejection Time 0.4 s RV AcT/ET 0.3 FINDINGS Left Ventricle Normal left ventricular size and systolic function, EF 71 %. No regional wall motion abnormalities. Mild left ventricular hypertrophy. Grade I/IV diastolic dysfunction (abnormal relaxation filling pattern), normal to mildly elevated filling pressures. Right Ventricle The right ventricle is normal in size and function. Right Atrium The right atrium is normal in size. Left Atrium Mildly increased left atrial size. Mitral Valve No gross abnormalities noted Aortic Valve Moderate aortic valve stenosis, mean gradient 19.3 mmHg, JEANNINE 1.1 cm squared. Trace to mild aortic valve regurgitation. Tricuspid Valve Moderate tricuspid valve regurgitation. Estimated pulmonary artery peak systolic pressure of 26 mmHg Pulmonic Valve Mild pulmonary valve regurgitation. Pericardium No pericardial effusion. Aorta Normal ascending aorta dimension. CONCLUSIONS Normal left ventricular size and systolic function, EF 71 %. No regional wall motion abnormalities. Mild left ventricular hypertrophy. Grade I/IV diastolic dysfunction (abnormal relaxation filling pattern), normal to mildly elevated filling pressures. Moderate aortic valve stenosis, mean gradient 19.3 mmHg, JEANNINE 1.1 cm squared. Trace to mild aortic valve regurgitation. Mildly increased left atrial size. Moderate tricuspid valve regurgitation. Estimated pulmonary artery peak systolic pressure of 26 mmHg. There is no pericardial effusion. There are no intracardiac masses. Compared to the study from 01/09/2021, there may not be a significant change Dr Joe Centeno MD [facility] (Electronically Signed) Final Date: 03 December 2021 15:50 S
== END 2021-12-03 13:30 | disposition home or self-care (01) ==
LOC: RAD 13:30
PROVIDERS: PCP Family Medicine; Visit Provider Nurse Practitioner Family
DX: I35.0 Nonrheumatic aortic (valve) stenosis (principal); I07.1 Rheumatic tricuspid insufficiency
CPT/HCPCS: 93306

== ENCOUNTER 2021-12-20 12:43 | Outpatient (RCR) | payer SELFPAY | END 2022-01-18 23:59 | disposition home or self-care (01) | LOC: CR 12:43 | PROVIDERS: PCP Family Medicine; Referring Provider Internal Medicine Cardiovascular Disease; Visit Provider Internal Medicine Cardiovascular Disease | DX: Z95.1 Presence of aortocoronary bypass graft (principal) ==

== ENCOUNTER 2022-01-20 12:13 | Outpatient (RCR) | payer SELFPAY | END 2022-02-18 23:59 | disposition home or self-care (01) | LOC: CR 12:13 | PROVIDERS: PCP Family Medicine; Referring Provider Internal Medicine Cardiovascular Disease; Visit Provider Internal Medicine Cardiovascular Disease | DX: Z95.1 Presence of aortocoronary bypass graft (principal) ==

== ENCOUNTER 2022-02-19 09:28 | Outpatient (RCR) | payer SELFPAY | END 2022-03-20 23:59 | disposition home or self-care (01) | LOC: CR 09:28 | PROVIDERS: PCP Family Medicine; Referring Provider Internal Medicine Cardiovascular Disease; Visit Provider Internal Medicine Cardiovascular Disease | DX: Z95.1 Presence of aortocoronary bypass graft (principal) ==

== ENCOUNTER 2022-03-21 10:32 | Outpatient (RCR) | payer SELFPAY | END 2022-04-20 23:59 | disposition home or self-care (01) | LOC: CR 10:32 | PROVIDERS: PCP Family Medicine; Referring Provider Internal Medicine Cardiovascular Disease; Visit Provider Internal Medicine Cardiovascular Disease | DX: Z95.1 Presence of aortocoronary bypass graft (principal) ==

== ENCOUNTER 2022-04-21 11:08 | Outpatient (RCR) | payer SELFPAY | END 2022-05-21 23:59 | disposition home or self-care (01) | LOC: CR 11:08 | PROVIDERS: PCP Family Medicine; Referring Provider Internal Medicine Cardiovascular Disease; Visit Provider Internal Medicine Cardiovascular Disease | DX: Z95.1 Presence of aortocoronary bypass graft (principal) ==

== ENCOUNTER → 2022-05-15 14:55 | Outpatient (BNVA) | payer MEDICARE, SELFPAY | PROVIDERS: PCP Family Medicine; Visit Provider Internal Medicine Cardiovascular Disease | DX: I35.0 Nonrheumatic aortic (valve) stenosis (principal); I10 Essential (primary) hypertension; E78.5 Hyperlipidemia, unspecified; I25.10 Atherosclerotic heart disease of native coronary artery without angina pectoris; Z95.1 Presence of aortocoronary bypass graft; Z86.73 Personal history of transient ischemic attack (TIA), and cerebral infarction without residual deficits | CPT/HCPCS: 99214 ==

== ENCOUNTER 2022-05-22 14:57 | Outpatient (RCR) | payer SELFPAY | END 2022-06-20 23:59 | disposition home or self-care (01) | LOC: CR 14:57 | PROVIDERS: PCP Family Medicine; Referring Provider Internal Medicine Cardiovascular Disease; Visit Provider Internal Medicine Cardiovascular Disease | DX: Z95.1 Presence of aortocoronary bypass graft (principal) ==

== ENCOUNTER 2022-06-23 09:49 | Outpatient (RCR) | payer SELFPAY | END 2022-07-21 23:59 | disposition home or self-care (01) | LOC: CR 09:49 | PROVIDERS: PCP Family Medicine; Referring Provider Internal Medicine Cardiovascular Disease; Visit Provider Internal Medicine Cardiovascular Disease | DX: Z95.1 Presence of aortocoronary bypass graft (principal) ==

== ENCOUNTER 2022-07-22 10:29 | Outpatient (RCR) | payer SELFPAY | END 2022-08-20 23:59 | disposition home or self-care (01) | LOC: CR 10:29 | PROVIDERS: PCP Family Medicine; Referring Provider Internal Medicine Cardiovascular Disease; Visit Provider Internal Medicine Cardiovascular Disease | DX: Z95.1 Presence of aortocoronary bypass graft (principal) ==

== ENCOUNTER → 2022-07-24 09:09 | Outpatient (BNVA) | payer MEDICARE, SELFPAY | PROVIDERS: PCP Family Medicine; Visit Provider Family Medicine | DX: Z00.00 Encounter for general adult medical examination without abnormal findings (principal); I25.10 Atherosclerotic heart disease of native coronary artery without angina pectoris; E78.5 Hyperlipidemia, unspecified; I35.0 Nonrheumatic aortic (valve) stenosis; Z85.46 Personal history of malignant neoplasm of prostate; I10 Essential (primary) hypertension | CPT/HCPCS: 80053; 80061; 84153; 85025 ==

== ENCOUNTER 2022-08-21 13:12 | Outpatient (RCR) | payer SELFPAY | END 2022-09-20 23:59 | disposition home or self-care (01) | LOC: CR 13:12 | PROVIDERS: PCP Family Medicine; Referring Provider Internal Medicine Cardiovascular Disease; Visit Provider Internal Medicine Cardiovascular Disease | DX: Z95.1 Presence of aortocoronary bypass graft (principal) ==

== ENCOUNTER 2022-09-24 14:42 | Outpatient (RCR) | payer SELFPAY | END 2022-10-21 23:59 | disposition home or self-care (01) | LOC: CR 14:42 | PROVIDERS: PCP Family Medicine; Referring Provider Internal Medicine Cardiovascular Disease; Visit Provider Internal Medicine Cardiovascular Disease | DX: Z95.1 Presence of aortocoronary bypass graft (principal) ==

== ENCOUNTER 2022-10-22 15:40 | Outpatient (RCR) | payer SELFPAY | END 2022-11-18 23:59 | disposition home or self-care (01) | LOC: CR 15:40 | PROVIDERS: PCP Family Medicine; Referring Provider Internal Medicine Cardiovascular Disease; Visit Provider Internal Medicine Cardiovascular Disease | DX: Z95.1 Presence of aortocoronary bypass graft (principal) ==

== ENCOUNTER → 2022-10-27 14:53 | Outpatient (BNVA) | payer MEDICARE, SELFPAY | PROVIDERS: PCP Family Medicine; Visit Provider Internal Medicine Cardiovascular Disease | DX: I35.0 Nonrheumatic aortic (valve) stenosis (principal); I25.10 Atherosclerotic heart disease of native coronary artery without angina pectoris; I10 Essential (primary) hypertension; E78.5 Hyperlipidemia, unspecified; Z95.1 Presence of aortocoronary bypass graft | CPT/HCPCS: 99214; Q3014 ==

== ENCOUNTER 2022-11-05 07:46 | Outpatient (CLI) | payer MEDICARE, SELFPAY ==
--- NOTE | 2022-11-05 08:00 | USCV_ITS ---
Rick Serrano Age: 82 Gender: M : 1940 Exam Date: 11/05/2022 08:11 Ordering Phys: Valentina Murphy MD ([email or web address]) Technologist: Arthur Prieto Exam Location: [facility] [place] Indication: sob BP: 128 / 68 HR: 50 Rhythm: Sinus Technical Quality: Adequate MEASUREMENTS (Male / Female) Normal Values 2D ECHO LV Diastolic Diameter PLAX 4.8 cm 4.2 - 5.9 / 3.9 - 5.3 cm LV Systolic Diameter PLAX 3.1 cm IVS Diastolic Thickness 1.0 cm 0.6 - 1.0 / 0.6 - 0.9 cm IVS Systolic Thickness 1.6 cm LVPW Diastolic Thickness 1.3 cm 0.6 - 1.0 / 0.6 - 0.9 cm LVPW Systolic Thickness 1.7 cm LVOT Diameter 2.0 cm LV Ejection Fraction 2D Teich 63.2 % LV Ejection Fraction MOD 2C 70.2 % LV Ejection Fraction 2C AL 71.7 % LA Diameter 3.1 cm LA Width 4.0 cm LA Height 4.5 cm RA Width 2.9 cm RA Height 4.8 cm Aorta at Sinotubular Diameter 2.5 cm IVC Diameter 1.8 cm M-MODE Aortic Annulus Diameter 3.5 cm LA Ao Ratio MM 0.9 MV E Point Septal Separation 0.4 cm DOPPLER AV Peak Velocity 359.0 cm/s LVOT Peak Velocity 92.0 cm/s AV Area Cont Eq vti 0.8 cm squared AV Area Cont Eq pk 0.8 cm squared MV Peak Velocity 78.0 cm/s MV Area PHT 3.4 cm squared Mitral E to A Ratio 1.4 MV E' Velocity 44.0 cm/s Mitral E to MV E' Ratio 9.2 Mitral E to LV E' Lateral Ratio 7.9 Mitral E to LV E' Septal Ratio 11.0 TR Peak Velocity 324.0 cm/s TR Peak Gradient 42.0 mmHg TR Mean Velocity 255.5 cm/s TR Mean Gradient 27.5 mmHg TR Velocity Time Integral 109.9 cm Right Atrial Pressure 3.0 mmHg Pulmonary Artery Systolic Pressu 45.0 mmHg PV Peak Velocity 93.0 cm/s RV Acceleration Time 0.1 s RV Ejection Time 0.3 s RV AcT/ET 0.3 FINDINGS Left Ventricle Normal left ventricular size, systolic function and moderately increased wall thickness, with no regional wall motion abnormalities. Left ventricular ejection fraction is estimated at 65 %. Normal diastolic function. Right Ventricle Normal right ventricular size and systolic function. Right ventricular systolic pressure 45 mmHg. Right Atrium Normal right atrial size. Left Atrium Moderately increased left atrial size. Mitral Valve Structurally normal mitral valve. No mitral valve stenosis. Trace mitral valve regurgitation. Aortic Valve Markedly thickened and calcified aoric valve. Moderate to severe aortic valve stenosis, peak velocity 3.7 m./sec, peak gradient 55 mm Hg, mean gradient 31 mmHg, JEANNINE 0.82 cm squared. Dimensionless valve index of 0.25. [id number] aortic valve regurgitation. Tricuspid Valve Structurally normal tricuspid valve. No tricuspid valve stenosis. Iaer-[id number] tricuspid valve regurgitation. Pulmonic Valve Structurally normal pulmonic valve. No pulmonary valve stenosis.Mild to moderate pulmonary valve regurgitation. Pericardium No pericardial effusion. Aorta Normal sized aortic root. IVC Normal IVC dimension with >50% respiratory change of the inferior vena cava. CONCLUSIONS 1. Normal left ventricular size, systolic function and moderately increased wall thickness, with no regional wall motion abnormalities. Left ventricular ejection fraction is estimated at 65 %. Normal diastolic function. 2.Possibly moderate to severe aortic valve stenosis, peak velocity 3.7 m./sec, peak gradient 55 mm Hg, mean gradient 31 mmHg, JEANNINE 0.82 cm squared. Dimensionless valve index of 0.25. Mild-to- moderate aortic valve regurgitation. 3. When compared to study dated 12/03/21, aortic stenosis seems to have worsened. Valentina Murphy MD (Electronically Signed) Final Date: 14 November 2022 13:20 S
== END 2022-11-05 07:47 | disposition home or self-care (01) ==
LOC: RAD 07:51
PROVIDERS: PCP Family Medicine; Visit Provider Internal Medicine Cardiovascular Disease
DX: R06.02 Shortness of breath (principal); I25.10 Atherosclerotic heart disease of native coronary artery without angina pectoris; I35.0 Nonrheumatic aortic (valve) stenosis
CPT/HCPCS: 93306

== ENCOUNTER → 2022-11-20 09:20 | Outpatient (BNVA) | payer MEDICARE, SELFPAY | PROVIDERS: PCP Family Medicine; Visit Provider Nurse Practitioner Family | DX: I35.0 Nonrheumatic aortic (valve) stenosis (principal); I25.10 Atherosclerotic heart disease of native coronary artery without angina pectoris; I10 Essential (primary) hypertension; Z95.1 Presence of aortocoronary bypass graft; Z79.82 Long term (current) use of aspirin | CPT/HCPCS: 36415; 80048; 83880; 85025; 85610; 99214 ==

== ENCOUNTER 2022-11-24 14:33 | Outpatient (RCR) | payer SELFPAY | END 2022-12-19 23:59 | disposition home or self-care (01) | LOC: CR 14:33 | PROVIDERS: PCP Family Medicine; Referring Provider Internal Medicine Cardiovascular Disease; Visit Provider Internal Medicine Cardiovascular Disease | DX: Z95.1 Presence of aortocoronary bypass graft (principal) ==

== ENCOUNTER 2022-11-26 07:26 | Outpatient (CLI) | payer MEDICARE, SELFPAY ==
[2022-11-25 09:28] VITALS: BMI 27.9
[2022-11-26] VITALS (13 sets, daily range): BP systolic 134–174; BP diastolic 63–101; PULSE 47–62; RESP 13–19; O2SAT 95–99; BMI 27.9
[2022-11-26] MEDS: diphenhydrAMINE 50 mg Capsule PO (08:27)
--- NOTE | 2022-11-26 08:27 | P.HPUD_ITS ---
Surgery/Procedure H&P Update DATE OF PROCEDURE: November 26, 2022 DATE H&P PERFORMED: 11/20/22 H&P UPDATE INFORMATION: I have reviewed H&P completed within last 30 days, I have examined patient prior to procedure, No changes to prior documentation and H&P is in [facility] [place] on date indicated PREOP DIAGNOSIS: dwkorsening by ECHO PRIMARY INDICATION FOR PROCEDURE: PLANNED PROCEDURE: Operation Date: 11/26/22 08:30 Proposed Procedures p [facility] w/wo [id number], I35.0,I25.10(Bilateral) - Michael Rich MD
--- NOTE | 2022-11-26 08:30 | XACV_ITS ---
Exam Room: 2 Ht: 173 cm Wt: 83 kg BSA: 2.02 m2 Gender: Male : 1940 Any Known Allergies: Other Exam Priority: Routine Procedure(s): Procedure Description: Diagnostic procedure Procedure Description: Right Heart Catheterization Procedure Description: Venous Graft Catheterization Procedure Description: GODFREY Graft Catheterization Procedure Description: O2 saturation Procedure Description: Coronary Angiography Hilario WILL; Diagnostic Cath Status: Elective Diagnostic Findings * Patient was brought in electively for right and left heart catheterization, coronary angiography and graft angiography. This is in preparation for a TAVR. His aortic valve stenosis has become severe by echo. * Procedure was performed from the right groin. Right heart catheter pressures include a pulmonary artery pressure of 38/14 with a mean of 22, right atrial pressure of 12 mmHg and a pulmonary capillary wedge pressure of 17 mmHg. Right atrial saturation 68%, pulmonary artery saturation 67%. Aortic saturation 95%. * Coronary angiography reveals right coronary artery dominance. The left main coronary artery is normal. The LAD is occluded in the proximal portion. This has been noted before. Distal flow is via left internal mammary artery. The circumflex contains mild diffuse disease, is a small vessel and has no significant lesions. The right coronary artery is the dominant vessel and contains multiple severe lesions in the proximal and midportion and is essentially occluded more distally. * 1 notices at least moderate aortic insufficiency upon injection of the coronary arteries. * The left internal mammary artery graft to the LAD is patent. The reverse saphenous vein graft to the distal right coronary artery is patent. PCI Status: Elective Conclusions 1. Patent bypass grafts, severe aortic stenosis by echo. Moderate aortic insufficiency. Severe [place] two-vessel disease unchanged. Recommendations * TAVR. Interventional RX Recommendation: other cardiac therapy w/o CABG/PCI Diagnostic RX Recommendation: other cardiac therapy w/o CABG/PCI Pressures Phase:Rest AO : 125 / 56 ( 82 ) @ 8:54:00 AM 136 / 63 ( 91 ) @ 9:05:00 AM RV : 42 / 7 / 16 @ 8:46:00 AM PA : 38 / 14 ( 22 ) @ 8:48:00 AM RA : a wave = 15 v wave = 14 mean = 12 @ 8:46:00 AM PCW : a wave = 19 v wave = 18 mean = 17 @ 8:47:00 AM O2 Content Phase:Rest PA : O2 Content O2: 67.0 @ 8:48:00 AM Saturations Phase:Rest AO : 95 @ 8:54:00 AM RA : 68 @ 9:05:00 AM PA : 67 @ 8:48:00 AM Cardiac Output Phase:Rest Burke : 4 @ 9:47:51 AM Burke Cardiac Index: 2 @ 9:47:51 AM Flow Phase:Rest Qp : 4 @ 9:47:51 AM Qs : 4 @ 9:47:51 AM Clinical Evaluation EBL: 5mL-10mL Procedural Details Procedure Consent Obtained. Admit Source: Out Patient. Pre-Procedure Time Out. Identified patient by full name and date of as verbalized by the patient/guarantor. Does the consent match the physician's order: Yes. Accurate & Complete Informed Consent: Yes. Inpatient/Outpatient History & Physical on Chart: Yes. If H&P is completed, is and addenduem needed: No; If yes, is the addendum complete: N/A. Visualize and Verify Site with Patient/Guarantor: N/A. Relevant Radiology Images available: N/A. The risks, benefits, and alternatives of sedation and/or procedure were discussed by physician. The patient agrees to continue. Procedure started. [facility] Clinical Fraility Score: 3: Managing Well. Imager Indications: Valvular Disease. Chest Pain Symptom Assessment: Typical Angina Symptoms. Correct patient, site and procedure confirmed by cath team. PERRLA. Strong, equal hand assembler cards and announcements bilaterally. Lungs clear x 5 lobes. IV Site on Arrival: 20 gauge in the right anticubital. IV Fluids: 0.9% NaCl at KVO. 0 mL infused prior to labor gang supervisor. Pre Procedural Pulses: bilateral posterior tibial was 1+. Pre Procedural Pulses: right dorsalis pedis was 1+. Pre Procedural Pulses: right dorsalis pedis was 2+. Physician arrived. Pre Procedural Pulses: right radial was 2+. bilateral groins was prepped with chloroprep then draped in the usual sterile fashion. Physician notified. Baseline sample Acquired. HR: 48 BPM. Physician scrubbed in. Immediate Pre-Procedure Time Out. Correct Patient: Yes; Correct Procedure: Yes; Correct Site: Yes; Correct Patient Position: Yes; Correct Supplies: Yes; Dried Flammable Prep: Yes; Blood Products Available: N/A;. Lidocaine 1% infiltrated to the right groin. Arterial access obtained. Lidocaine 1% infiltrated to the right groin. Venous access obtained. [place] MON catheter inserted. Oximetry samples were obtained. Normal venous range: 60-85%. Normal arterial range: 95-100%. Pressure measurements obtained. ABG drawn and sent with respiratory therapy. [place] Carlos out. A 6 palauan JL4 catheter in over wire. Oxygen started at 2liters/min via nasal canula. Multiple views taken of left coronary artery. Catheter removed over the standard wire. A 6 palauan JR4 catheter in over wire. SVG's to RCA visualized and patent. Multiple views taken of right coronary artery. Exchange wire inserted. Exchange wire out. GODFREY to LAD visualized. Guide out, wire out. A Manual Compression was successful obtaining hemostatsis at the Right Femoral artery insertion site. A Manual Compression was successful obtaining hemostatsis at the Right Femoral vein insertion site. Post Procedure: Pulses reassessed and unchanged. PERRLA. Strong, equal hand assembler cards and announcements bilaterally. No VTE prophylaxis required. Medication's Wasted: Lidocaine 1% = 4 mL. Total IV fluids: 75 mL. Medication's Wasted: Heparin = 1000 units. Complications: None. Estimated blood loss: 5mL-10mL. Responsiveness - Normal response to verbal stimuli; alert and oriented, PERRLA. Airway - Unaffected, no intervention required; spontaneous ventilation. Circulation: W/N/L, pulses unchanged. Nausea/Vomiting: No. Procedure completed. Vital chart was stopped. Patient transferred by stretcher to CPRU. Access Site Site: Right Femoral artery Sheath Size: 6 Fr Hemostasis Method: Manual Compression Hemostasis Success: Successful Site: Right Femoral vein Sheath Size: 6 Fr Hemostasis Method: Manual Compression Hemostasis Success: Successful Procedure Medications Start: 8:38 AM Stop: 8:38 AM Medication: Versed Amount: 1 mg Route: I.V. Start: 8:38 AM Stop: 8:38 AM Medication: Fentanyl Amount: 50 mcg Route: I.V. Start: 8:39 AM Stop: 8:39 AM Medication: Solu-Medrol (methylprednisolone) Amount: 125 mg Route: I.V. Start: 9:08 AM Stop: 9:08 AM Medication: Versed Amount: 1 mg Route: I.V. Start: 9:09 AM Stop: 9:09 AM Medication: Fentanyl Amount: 50 mcg Route: I.V. I, the attending physician, have reviewed and verified all procedure medications. Yes, all medications given per verbal order History/Risk Factors Hypertension: Yes Dyslipidemia: Yes Peripheral Arterial Disease (PAD): No Myocardial Infarction (PA): No Obesity: No Tobacco Use: Never Prior Interventions PCI: No CABG: Yes Valve Surgery: No Report Signatures Finalized by Dr. Michael Rich MD on 11/26/2022 10:23 AM
[2022-11-26 08:54] LABS: Alveolar-Arterial Oxygen Gradi 2.7 mmHg (5-10); Arterial Blood Gas Hematocrit 40.3 % (42-52); Blood Gas Operator Identificat BROMA; Blood Gas Sample Site Not specified; Blood Gas Sample Type Arterial; HGB O2 Sat 92.9 % (95-100); Methemoglobin 0.9 % (0.4-1.5); Total Hemoglobin 13.1 g/dL (14-18)
[2022-11-26 08:57] LABS: Alveolar-Arterial Oxygen Gradi 8.1 mmHg (5-10); Arterial Blood Gas Hematocrit 36.8 % (42-52); Blood Gas Operator Identificat BROMA; Blood Gas Sample Site Not specified; Blood Gas Sample Type Arterial; Carboxyhemoglobin 1.1 %THgb (0.4-20.1); HGB O2 Sat 66.2 % (95-100)
[2022-11-26 09:00] LABS: Alveolar-Arterial Oxygen Gradi 7.5 mmHg (5-10); Arterial Blood Gas Hematocrit 36.3 % (42-52); Blood Gas Operator Identificat BROMA; Blood Gas Sample Site Not specified; Blood Gas Sample Type Arterial; Carboxyhemoglobin 1.3 %THgb (0.4-20.1); HGB O2 Sat 65.5 % (95-100); Methemoglobin 1.1 % (0.4-1.5); Total Hemoglobin 11.8 g/dL (14-18)
--- NOTE | 2022-11-26 09:53 | PC.NURSE ---
Recovery Note Received patient from produce laborer via gurney. Pt alert and oriented X 3. Breathing even and non-labored on room air. Pt denies pain. Right groin dressing clean and dry, no signs of bleeding or hematoma. Pt placed on bedside weight and balance control agent, pt and educated on activity restrictions. Ambulation time 1530. Pt and verbalized understanding. Call light in reach.
--- NOTE | 2022-11-26 09:59 | PC.NURSE ---
Fluid Order Pt arrived with NS hanging from curb and gutter laborer. NS infusing at 100ml/hr as ordered by Dr. Rich.
--- NOTE | 2022-11-26 10:12 | PM.DCS ---
Discharge Providers Date of Admission: November 26, 2022 Date of Discharge: November 26, 2022 Attending Provider at Admission: froilan Attending Provider at Discharge: Michael Rich MD Primary Care Provider: Teddy Mae MD Diagnoses at Discharge Discharge Diagnosis (1) Hyperlipidemia: Status: Acute (2) Aortic stenosis: Status: Acute Qualifiers: Cardiac valve disease etiology: etiology unspecified Qualified Code(s): I35.0 - Nonrheumatic aortic (valve) stenosis (3) HTN (hypertension): Status: Acute Qualifiers: Hypertension type: essential hypertension Qualified Code(s): I10 - Essential (primary) hypertension (4) CAD (coronary artery disease): Status: Acute Qualifiers: Coronary Disease-Associated Artery/Lesion type: [place] artery [place] vs. transplanted heart: [place] heart Associated angina: without angina Qualified Code(s): I25.10 - Atherosclerotic heart disease of [place] coronary artery without angina pectoris (5) S/P CABG (coronary artery bypass graft): Status: Acute Reason for Visit Reason for Visit: I35.0 Brief History: Patient was brought in as an outpatient today for coronary angiography and graft angiography and right heart catheterization prior to consideration of aortic valve replacement with TAVR. Hospital Course Hospital Course Procedure was done from the right common femoral artery and vein. His pulmonary pressure is in the low 40s. Saturations in the right atrium and pulmonary artery are consistent and unremarkable. His 2 bypass grafts, the left internal mammary to the LAD and the right coronary artery graft are both patent. His [place] coronary arteries are as they were during the last angiogram in 2020. His LAD is occluded. There are multiple severe lesions in the right coronary artery. The circumflex is unremarkable. I did not cross the valve. He tolerated the procedure well. When he goes home he will continue the same medications. We will see him in a week and then set up a referral for a TAVR. Physical Exam Narrative: GENERAL: In general he looks and feels well HEENT: Exam within normal limits. NECK: Supple without jugular vein distention. The carotid upstroke is normal without bruits. BACK: Exam normal. LUNGS: Clear. HEART: Regular rate and rhythm. Grade 1/6 systolic ejection murmur consistent with aortic stenosis ABDOMEN: Benign without organomegaly or tenderness. EXTREMITIES: No edema. At the time of discharge his right groin area of the artery and vein are flat, dry and without bleeding or hematoma. NEUROLOGIC: Exam normal. SKIN: Unremarkable. Discharge Data Studies Completed and Pending Pending at discharge Category Date Time Status PAUNCH TRIMMER request for service Routine Exams 11/26/22 08:30 Stop Req Laboratory Results Specimen Type Arterial 11/26/22 08:49 Sample Site Not specified 11/26/22 08:49 Brian Test N/a 11/26/22 08:49 A-a O2 Gradient 7.5 mmHg (5-10) 11/26/22 08:49 Hematocrit 36.3 % (42-52) L 11/26/22 08:49 Hgb O2 Saturation 65.5 % (95-100) L 11/26/22 08:49 Carboxyhemoglobin 1.3 %THgb (0.4-20.1) 11/26/22 08:49 Methemoglobin 1.1 % (0.4-1.5) 11/26/22 08:49 Total Hemoglobin 11.8 g/dL (14-18) L 11/26/22 08:49 O2 Delivery Device None 11/26/22 08:49 Freight Dispatcher ID Rogelio 11/26/22 08:49 Procedures Performed Right heart catheterization, coronary angiography, graft angiography. Vitals Last Vital Signs Pulse 48 L 11/26/22 09:57 Resp 15 11/26/22 09:57 BP 150/75 11/26/22 09:57 Pulse Ox 98 11/26/22 09:57 O2 Del Method 11/26/22 09:57 Discharge Plan Discharge Patient Disposition: Home Prescriptions: Continued turmeric 400 mg capsule 400 mg PO DAILY zyflamend 1 tab PO DAILY omega-3 fatty acids [Fish Oil Concentrate] 1,000 mg capsule 1,000 mg PO DAILY cholecalciferol (vitamin D3) 25 mcg (1,000 unit) capsule 1,000 unit PO DAILY coenzyme Q10 [Co Q-10] 100 mg capsule 100 mg PO DAILY Adult Probiotic 3 billion cell capsule 3,000 mmu cells PO DAILY Rx Instructions: administer with a meal Repatha SureClick 140 mg/mL pen injector 140 mg SUBCUT Q14D Qty: 2 12RF amlodipine 5 mg tablet 2.5 mg PO DAILY Qty: 45 2RF ezetimibe 10 mg tablet 10 mg PO DAILY Qty: 30 11RF metoprolol tartrate 25 mg tablet 25 mg PO BID Qty: 180 3RF aspirin 325 mg Tablet 325 mg PO DAILY Qty: 0 Discharge Orders: Discharge Order (Routine); Ordered 11/26/22 Ordered By: Michael Rich Referrals: Kasey Garcia FNP [Nurse Practitioner] - 7-10 days (Check right groin, chemistry panel and arrange for referral for consideration of TAVR) Diet: Usual diet Activity: Limit activity as instructed Activity Restrictions/Additional Instructions: No lifting over 5 pounds for 2 days. Call for swelling, bleeding or other discomfort in the right groin. Discharge Attestations Time Spent in Discharge Care*: less than 30 min Quality Metrics Clinical Quality Measures [ No reported AMI, CVA or VTE this stay] Coding Level of Care Code Acute Code for Chg Fwd Diagnoses Hyperlipidemia E78.5 Aortic stenosis I35.0 Cardiac valve disease etiology: etiology unspecified HTN (hypertension) I10 Hypertension type: essential hypertension CAD (coronary artery disease) I25.10 Coronary Disease-Associated Artery/Lesion type: [place] artery [place] vs. transplanted heart: [place] heart Associated angina: without angina S/P CABG (coronary artery bypass graft) Z95.1
--- NOTE | 2022-11-26 12:33 | PC.NURSE ---
Report called by John Marinelli RN to CALEB Norton . Pt transferred to CSU room 101 via bed. at bedside.
--- NOTE | 2022-11-26 17:30 | PC.NURSE ---
Discharge Note Patient discharged home accompanied by . Discharge instructions reviewed with patient and , both verbalized understanding of teaching. All belongings sent home with patient. At time of discharge patient is alert/oriented x4 and denies pain. Transparent dressing with gauze applied to right groin sheath site. No bruising or bleeding noted at this time.
== END 2022-11-26 17:30 | disposition home or self-care (01) ==
LOC: CCL 10:10 → CSU 12:37
PROVIDERS: PCP Family Medicine; Visit Provider Internal Medicine Cardiovascular Disease
DX: I35.0 Nonrheumatic aortic (valve) stenosis (principal); I10 Essential (primary) hypertension; I25.10 Atherosclerotic heart disease of native coronary artery without angina pectoris; E78.5 Hyperlipidemia, unspecified; Z95.1 Presence of aortocoronary bypass graft; Z85.46 Personal history of malignant neoplasm of prostate; Z79.82 Long term (current) use of aspirin; Z86.73 Personal history of transient ischemic attack (TIA), and cerebral infarction without residual deficits
CPT/HCPCS: 36415; 82810; 93457; 96361; 96365; 99152; 99153; C1751; C1769; C1887; C1894; J1644; J2250; J2930; J3010; J7030; Q0163; Q9967

== ENCOUNTER → 2022-12-10 09:22 | Outpatient (BNVA) | payer MEDICARE, SELFPAY | PROVIDERS: PCP Family Medicine; Visit Provider Nurse Practitioner Family | DX: I35.0 Nonrheumatic aortic (valve) stenosis (principal); I25.10 Atherosclerotic heart disease of native coronary artery without angina pectoris; Z95.1 Presence of aortocoronary bypass graft; Z79.82 Long term (current) use of aspirin; I10 Essential (primary) hypertension | CPT/HCPCS: 36415; 80048; 99214 ==

== ENCOUNTER 2022-12-22 14:01 | Outpatient (RCR) | payer SELFPAY | END 2023-01-18 23:59 | disposition home or self-care (01) | LOC: CR 14:01 | PROVIDERS: PCP Family Medicine; Referring Provider Internal Medicine Cardiovascular Disease; Visit Provider Internal Medicine Cardiovascular Disease | DX: Z95.1 Presence of aortocoronary bypass graft (principal) ==

== ENCOUNTER 2023-01-12 08:27 | Outpatient (CLI) | payer MEDICARE, SELFPAY ==
--- NOTE | 2023-01-12 08:35 | XR_ITS ---
WS: [id number] Exam: XR chest 2V* [id number] Date/Time of Exam: 01/12/2023 8:42 AM Reason For Exam: cough/ ro pneumonia Comparison 09/04/2021. The lungs are clear and hyperinflated. Normal cardiomediastinal silhouette. No pleural effusions. Sig ns of previous CABG surgery. Mild thoracic dextroscoliosis. XR/XR chest 2V* [id number] IMPRESSION: 1. Pulmonary hyperinflation. No acute process identified.
== END 2023-01-12 08:28 | disposition home or self-care (01) ==
LOC: RAD 08:31
PROVIDERS: PCP Family Medicine; Visit Provider Family Medicine
DX: R05.9 Cough, unspecified (principal)
CPT/HCPCS: 71046

== ENCOUNTER → 2023-01-20 13:20 | Outpatient (BNVA) | payer MEDICARE, SELFPAY | PROVIDERS: PCP Family Medicine; Visit Provider Family Medicine | DX: I35.0 Nonrheumatic aortic (valve) stenosis (principal); I10 Essential (primary) hypertension; Z95.2 Presence of prosthetic heart valve | CPT/HCPCS: 80048; 85025 ==

== ENCOUNTER 2023-03-10 14:54 | Outpatient (RCR) | payer MEDICARE, SELFPAY | END 2023-03-20 23:59 | disposition home or self-care (01) | LOC: CR 14:54 | PROVIDERS: PCP Family Medicine; Referring Provider Internal Medicine Cardiovascular Disease; Visit Provider Internal Medicine Cardiovascular Disease | DX: Z95.2 Presence of prosthetic heart valve (principal) | CPT/HCPCS: 93798 ==

== ENCOUNTER 2023-03-23 13:49 | Outpatient (RCR) | payer MEDICARE, SELFPAY | END 2023-04-20 23:59 | disposition home or self-care (01) | LOC: CR 13:49 | PROVIDERS: PCP Family Medicine; Referring Provider Internal Medicine Cardiovascular Disease; Visit Provider Internal Medicine Cardiovascular Disease | DX: Z95.2 Presence of prosthetic heart valve (principal) | CPT/HCPCS: 93798 ==

== ENCOUNTER 2023-04-21 12:27 | Outpatient (RCR) | payer MEDICARE, SELFPAY | END 2023-05-21 23:59 | disposition home or self-care (01) | LOC: CR 12:27 | PROVIDERS: PCP Family Medicine; Referring Provider Internal Medicine Cardiovascular Disease; Visit Provider Internal Medicine Cardiovascular Disease | DX: Z95.2 Presence of prosthetic heart valve (principal) | CPT/HCPCS: 93798 ==

== ENCOUNTER → 2023-04-27 13:32 | Outpatient (BNVA) | payer MEDICARE, SELFPAY | PROVIDERS: PCP Family Medicine; Visit Provider Internal Medicine Cardiovascular Disease | DX: I35.0 Nonrheumatic aortic (valve) stenosis (principal); I10 Essential (primary) hypertension; E78.5 Hyperlipidemia, unspecified; I25.10 Atherosclerotic heart disease of native coronary artery without angina pectoris | CPT/HCPCS: 99214 ==

== ENCOUNTER → 2023-04-30 08:28 | Outpatient (BNVA) | payer MEDICARE, SELFPAY | PROVIDERS: PCP Family Medicine; Visit Provider Family Medicine | DX: Z95.2 Presence of prosthetic heart valve (principal); I35.0 Nonrheumatic aortic (valve) stenosis; I10 Essential (primary) hypertension; I25.10 Atherosclerotic heart disease of native coronary artery without angina pectoris | CPT/HCPCS: 80053; 80061; 85025 ==

== ENCOUNTER 2023-05-22 12:37 | Outpatient (RCR) | payer MEDICARE, SELFPAY | END 2023-06-20 23:59 | disposition home or self-care (01) | LOC: CR 12:37 | PROVIDERS: PCP Family Medicine; Referring Provider Internal Medicine Cardiovascular Disease; Visit Provider Internal Medicine Cardiovascular Disease | DX: Z95.2 Presence of prosthetic heart valve (principal) | CPT/HCPCS: 93798 ==

== ENCOUNTER 2023-06-01 11:40 | Outpatient (CLI) | payer MEDICARE, SELFPAY ==
--- NOTE | 2023-06-01 12:00 | USCV_ITS ---
Rick Serrano Age: 83 Gender: M : 1940 Exam Date: 06/01/2023 12:01 Ordering Phys: Teddy Mae MD Technologist: [place] [facility] [facility] [place]: dizzy Risk Factors: Previous Vascular Surgery: Right Brachial BP: / Left Brachial BP: / Right Left Velocity (cm/s) Spectral Plaque Velocity (cm/s) Spectral Plaque Syst/Diast Broadening Syst/Diast Broadening 56.10/ 8.00 Prox CCA 90.70 / 13.10 83.70/ 12.00 Mid CCA 109.10/ 15.80 104.20/12.80 Hetro Distal CCA 71.00 / 14.50 Hetro 97.40/ 13.70 Prox ICA 92.00 / 13.10 134.10/26.30 Mid ICA 128.80/ 23.70 102.50/26.30 Distal ICA 109.10/ 22.30 112.80 ECA 148.60 1.29 ICA/CCA 1.18 Not Vertebral Antegrade Visualized 113.1/ 18.40 cm/s 57.80/ 13.10 cm/s 0 Tri Subclavian Tri 93.30 127.5 0 FINDINGS Comparison:. 08/16/17 No significant elevation of systolic or diastolic velocities. Diffuse, mild bilateral scattered calcified plaque and intimal thickening throughout the common carotid arteries and extending through the bifurcation. CONCLUSIONS Bilateral ICA stenosis less than 50%. Diffuse mild carotid atherosclerosis. Dr. Ramona Roper DO (Electronically Signed) Final Date: 01 June 2023 13:04 S
== END 2023-06-01 11:41 | disposition home or self-care (01) ==
LOC: RAD 11:45
PROVIDERS: PCP Family Medicine; Visit Provider Family Medicine
DX: I65.23 Occlusion and stenosis of bilateral carotid arteries (principal)
CPT/HCPCS: 93880

== ENCOUNTER 2023-06-23 11:25 | Outpatient (RCR) | payer SELFPAY | END 2023-07-21 23:59 | disposition home or self-care (01) | LOC: CR 11:25 | PROVIDERS: PCP Family Medicine; Referring Provider Internal Medicine Cardiovascular Disease; Visit Provider Internal Medicine Cardiovascular Disease | DX: Z95.2 Presence of prosthetic heart valve (principal) ==

== ENCOUNTER 2023-07-22 10:54 | Outpatient (RCR) | payer SELFPAY | END 2023-08-20 23:59 | disposition home or self-care (01) | LOC: CR 10:54 | PROVIDERS: PCP Family Medicine; Referring Provider Internal Medicine Cardiovascular Disease; Visit Provider Internal Medicine Cardiovascular Disease | DX: Z95.2 Presence of prosthetic heart valve (principal) ==

== ENCOUNTER 2023-08-21 10:49 | Outpatient (RCR) | payer SELFPAY | END 2023-09-20 23:59 | disposition home or self-care (01) | LOC: CR 10:49 | PROVIDERS: PCP Family Medicine; Referring Provider Internal Medicine Cardiovascular Disease; Visit Provider Internal Medicine Cardiovascular Disease | DX: Z95.2 Presence of prosthetic heart valve (principal) ==

== ENCOUNTER 2023-09-22 10:18 | Outpatient (RCR) | payer SELFPAY | END 2023-10-21 23:59 | disposition home or self-care (01) | LOC: CR 10:18 | PROVIDERS: PCP Family Medicine; Referring Provider Internal Medicine Cardiovascular Disease; Visit Provider Internal Medicine Cardiovascular Disease | DX: Z95.2 Presence of prosthetic heart valve (principal) ==

== ENCOUNTER 2023-10-22 11:29 | Outpatient (RCR) | payer SELFPAY | END 2023-11-19 23:59 | disposition home or self-care (01) | LOC: CR 11:29 | PROVIDERS: PCP Family Medicine; Referring Provider Internal Medicine Cardiovascular Disease; Visit Provider Internal Medicine Cardiovascular Disease | DX: Z95.2 Presence of prosthetic heart valve (principal) ==

== ENCOUNTER → 2023-10-27 09:26 | Outpatient (BNVA) | payer MEDICARE, SELFPAY | PROVIDERS: PCP Family Medicine; Visit Provider Nurse Practitioner Family | DX: I25.10 Atherosclerotic heart disease of native coronary artery without angina pectoris (principal); Z95.2 Presence of prosthetic heart valve; I10 Essential (primary) hypertension | CPT/HCPCS: 99214 ==

== ENCOUNTER → 2023-10-28 09:49 | Outpatient (BNVA) | payer MEDICARE, SELFPAY | PROVIDERS: PCP Family Medicine; Visit Provider Family Medicine | DX: I10 Essential (primary) hypertension (principal); Z95.2 Presence of prosthetic heart valve; I25.10 Atherosclerotic heart disease of native coronary artery without angina pectoris; E78.5 Hyperlipidemia, unspecified; Z85.46 Personal history of malignant neoplasm of prostate; Z79.899 Other long term (current) drug therapy | CPT/HCPCS: 80053; 80061; 84153; 85025 ==

== ENCOUNTER 2023-11-20 11:27 | Outpatient (RCR) | payer SELFPAY | END 2023-12-20 23:59 | disposition home or self-care (01) | LOC: CR 11:27 | PROVIDERS: PCP Family Medicine; Referring Provider Internal Medicine Cardiovascular Disease; Visit Provider Internal Medicine Cardiovascular Disease | DX: Z95.2 Presence of prosthetic heart valve (principal) ==

== ENCOUNTER 2023-12-22 12:11 | Outpatient (RCR) | payer SELFPAY | END 2024-01-19 23:59 | disposition home or self-care (01) | LOC: CR 12:11 | PROVIDERS: PCP Family Medicine; Referring Provider Internal Medicine Cardiovascular Disease; Visit Provider Internal Medicine Cardiovascular Disease | DX: Z95.2 Presence of prosthetic heart valve (principal) ==

== ENCOUNTER 2024-01-21 13:09 | Outpatient (RCR) | payer SELFPAY | END 2024-02-19 23:59 | disposition home or self-care (01) | LOC: CR 13:09 | PROVIDERS: PCP Family Medicine; Referring Provider Internal Medicine Cardiovascular Disease; Visit Provider Internal Medicine Cardiovascular Disease | DX: Z95.2 Presence of prosthetic heart valve (principal) ==

== ENCOUNTER 2024-02-23 12:05 | Outpatient (RCR) | payer SELFPAY | END 2024-03-20 23:59 | disposition home or self-care (01) | LOC: CR 12:05 | PROVIDERS: PCP Family Medicine; Referring Provider Internal Medicine Cardiovascular Disease; Visit Provider Internal Medicine Cardiovascular Disease | DX: Z95.2 Presence of prosthetic heart valve (principal) ==

== ENCOUNTER 2024-03-21 15:10 | Outpatient (RCR) | payer SELFPAY | END 2024-04-20 23:59 | disposition home or self-care (01) | LOC: CR 15:10 | PROVIDERS: PCP Family Medicine; Referring Provider Internal Medicine Cardiovascular Disease; Visit Provider Internal Medicine Cardiovascular Disease | DX: Z95.2 Presence of prosthetic heart valve (principal) ==

== ENCOUNTER 2024-04-21 09:27 | Outpatient (RCR) | payer MEDICARE, SELFPAY | END 2024-05-26 09:23 | disposition home or self-care (01) | LOC: CR 09:27 | PROVIDERS: PCP Family Medicine; Referring Provider Internal Medicine Cardiovascular Disease; Visit Provider Internal Medicine Cardiovascular Disease | DX: Z95.2 Presence of prosthetic heart valve (principal); I25.10 Atherosclerotic heart disease of native coronary artery without angina pectoris; I10 Essential (primary) hypertension; E78.5 Hyperlipidemia, unspecified | CPT/HCPCS: 80053; 80061; 85025 ==

== ENCOUNTER 2024-05-22 12:07 | Outpatient (RCR) | payer MEDICARE, SELFPAY | END 2024-06-20 23:59 | disposition home or self-care (01) | LOC: CR 12:07 | PROVIDERS: PCP Family Medicine; Referring Provider Internal Medicine Cardiovascular Disease; Visit Provider Internal Medicine Cardiovascular Disease | DX: Z95.2 Presence of prosthetic heart valve (principal) ==

== ENCOUNTER 2024-06-21 13:09 | Outpatient (RCR) | payer MEDICARE, SELFPAY | END 2024-07-21 23:59 | disposition home or self-care (01) | LOC: CR 13:09 | PROVIDERS: PCP Family Medicine; Referring Provider Internal Medicine Cardiovascular Disease; Visit Provider Internal Medicine Cardiovascular Disease | DX: Z95.2 Presence of prosthetic heart valve (principal) ==

== ENCOUNTER 2024-07-22 12:51 | Outpatient (RCR) | payer MEDICARE, SELFPAY | END 2024-08-20 23:59 | disposition home or self-care (01) | LOC: CR 12:51 | PROVIDERS: PCP Family Medicine; Referring Provider Internal Medicine Cardiovascular Disease; Visit Provider Internal Medicine Cardiovascular Disease | DX: Z95.2 Presence of prosthetic heart valve (principal) ==

== ENCOUNTER 2024-08-22 12:28 | Outpatient (RCR) | payer SELFPAY | END 2024-09-20 23:59 | disposition home or self-care (01) | LOC: CR 12:28 | PROVIDERS: PCP Family Medicine; Referring Provider Internal Medicine Cardiovascular Disease; Visit Provider Internal Medicine Cardiovascular Disease | DX: Z95.2 Presence of prosthetic heart valve (principal) ==

== ENCOUNTER 2024-09-29 09:02 | Outpatient (RCR) | payer SELFPAY | END 2024-10-21 23:59 | disposition home or self-care (01) | LOC: CR 09:02 | PROVIDERS: PCP Family Medicine; Referring Provider Internal Medicine Cardiovascular Disease; Visit Provider Internal Medicine Cardiovascular Disease | DX: Z95.2 Presence of prosthetic heart valve (principal) ==

== ENCOUNTER 2024-10-24 13:48 | Outpatient (RCR) | payer SELFPAY | END 2024-11-18 23:59 | disposition home or self-care (01) | LOC: CR 13:48 | PROVIDERS: PCP Family Medicine; Referring Provider Internal Medicine Cardiovascular Disease; Visit Provider Internal Medicine Cardiovascular Disease | DX: Z95.2 Presence of prosthetic heart valve (principal) ==

== ENCOUNTER → 2024-11-01 08:08 | Outpatient (BNVA) | payer MEDICARE, SELFPAY | PROVIDERS: PCP Family Medicine; Visit Provider Family Medicine | DX: I10 Essential (primary) hypertension (principal); Z95.2 Presence of prosthetic heart valve; I25.10 Atherosclerotic heart disease of native coronary artery without angina pectoris; E78.5 Hyperlipidemia, unspecified | CPT/HCPCS: 80053; 80061; 85025 ==

== ENCOUNTER → 2024-11-17 13:49 | Outpatient (BNVA) | payer MEDICARE, SELFPAY | PROVIDERS: PCP Family Medicine; Visit Provider Internal Medicine | DX: I35.0 Nonrheumatic aortic (valve) stenosis (principal); I10 Essential (primary) hypertension; E78.5 Hyperlipidemia, unspecified; I25.10 Atherosclerotic heart disease of native coronary artery without angina pectoris | CPT/HCPCS: 99214 ==

== ENCOUNTER 2024-11-18 13:22 | Outpatient (CLI) | payer MEDICARE, SELFPAY ==
--- NOTE | 2024-11-18 13:30 | USCV_ITS ---
Rick Serrano Age: 84 Gender: M : 1940 Exam Date: 11/18/2024 13:44 Ordering Phys: Tye Hooks M.D ([email or web address]) Technologist: CT Exam Location: [facility] [place] Indication: BP: 152 / 84 HR: 58 Rhythm: Sinus Technical Quality: Adequate MEASUREMENTS (Male / Female) Normal Values 2D ECHO LV Ejection Fraction MOD 4C 57.9 % LV Ejection Fraction MOD 2C 61.9 % LV Ejection Fraction 2C AL 64.5 % RA Systolic Volume 4C AL 42.9 ml RA Systolic Volume 4C MOD 42.5 ml LA Sys Volume AL 49.4 cm cubed LA Sys Volume Index AL 24.6 cm cubed/m squared DOPPLER AV Peak Velocity 221.0 cm/s LVOT Peak Velocity 91.0 cm/s MV Peak Velocity 86.0 cm/s MV Area PHT 2.7 cm squared Mitral E to A Ratio 1.0 TR Peak Velocity 273.5 cm/s TR Peak Gradient 29.9 mmHg TR Mean Velocity 209.0 cm/s TR Mean Gradient 19.6 mmHg TR Velocity Time Integral 84.4 cm TV Peak E Velocity 58.0 cm/s PV Peak Velocity 98.5 cm/s FINDINGS Left Ventricle Left ventricle is normal size. LV systolic function is normal with EF 55 to 60%. No regional wall motion abnormalities are seen. Grade 1 diastolic dysfunction Right Ventricle Normal in size and function Right Atrium Normal in size Left Atrium Normal in size Mitral Valve Mild mitral annular calcification. Mild mitral regurgitation. Aortic Valve Bioprosthetic aortic valve. Normally functioning valve with DVI of 0.36. Tricuspid Valve Mild tricuspid regurgitation. RVSP is 30 to 35 mmHg. Pulmonic Valve Mild pulmonic regurgitation. Pericardium Normal Aorta Normal in size IVC Not well visualized CONCLUSIONS LV systolic function is normal with EF of 55-60%. Grade 1 diastolic dysfunction. Mild mitral regurgitation Bioprosthetic aortic valve is normally functioning. Mild tricuspid regurgitation Mild pulmonic regurgitation Compared to prior echocardiogram from 2022, patient now has normally functioning bioprosthetic aortic valve. Tye Hooks MD (Electronically Signed) Final Date: 27 November 2024 09:51 S
== END 2024-11-18 13:23 | disposition home or self-care (01) ==
PROVIDERS: PCP Family Medicine; Visit Provider Internal Medicine
DX: R06.02 Shortness of breath (principal); I50.30 Unspecified diastolic (congestive) heart failure; I34.81 Nonrheumatic mitral (valve) annulus calcification; I34.0 Nonrheumatic mitral (valve) insufficiency; Z95.2 Presence of prosthetic heart valve; I07.1 Rheumatic tricuspid insufficiency; I37.1 Nonrheumatic pulmonary valve insufficiency
CPT/HCPCS: 93306

== ENCOUNTER 2024-11-21 12:11 | Outpatient (RCR) | payer SELFPAY | END 2024-12-19 23:59 | disposition home or self-care (01) | LOC: CR 12:11 | PROVIDERS: PCP Family Medicine; Referring Provider Internal Medicine Cardiovascular Disease; Visit Provider Internal Medicine Cardiovascular Disease | DX: Z95.2 Presence of prosthetic heart valve (principal) ==

== ENCOUNTER 2024-12-20 13:21 | Outpatient (RCR) | payer SELFPAY | END 2025-01-18 23:59 | disposition home or self-care (01) | LOC: CR 13:21 | PROVIDERS: PCP Family Medicine; Referring Provider Internal Medicine Cardiovascular Disease; Visit Provider Internal Medicine Cardiovascular Disease | DX: Z95.2 Presence of prosthetic heart valve (principal) ==

== ENCOUNTER 2025-01-19 10:48 | Outpatient (RCR) | payer SELFPAY | END 2025-02-18 23:59 | disposition home or self-care (01) | LOC: CR 10:48 | PROVIDERS: PCP Family Medicine; Referring Provider Internal Medicine Cardiovascular Disease; Visit Provider Internal Medicine Cardiovascular Disease | DX: Z95.2 Presence of prosthetic heart valve (principal) ==

== ENCOUNTER 2025-02-19 11:41 | Outpatient (RCR) | payer SELFPAY | END 2025-03-20 23:59 | disposition home or self-care (01) | LOC: CR 11:41 | PROVIDERS: PCP Family Medicine; Referring Provider Family Medicine; Visit Provider Family Medicine | DX: Z95.2 Presence of prosthetic heart valve (principal) ==

== ENCOUNTER 2025-03-21 09:55 | Outpatient (RCR) | payer SELFPAY | END 2025-04-20 23:59 | disposition home or self-care (01) | LOC: CR 09:55 | PROVIDERS: PCP Family Medicine; Referring Provider Family Medicine; Visit Provider Family Medicine | DX: Z95.2 Presence of prosthetic heart valve (principal) ==

== ENCOUNTER 2025-04-21 14:50 | Outpatient (RCR) | payer SELFPAY | END 2025-05-21 23:59 | disposition home or self-care (01) | LOC: CR 14:50 | PROVIDERS: PCP Family Medicine; Referring Provider Family Medicine; Visit Provider Family Medicine | DX: Z95.2 Presence of prosthetic heart valve (principal) ==

== ENCOUNTER → 2025-05-04 07:45 | Outpatient (BNVA) | payer MEDICARE, SELFPAY | PROVIDERS: PCP Family Medicine; Visit Provider Family Medicine | DX: I10 Essential (primary) hypertension (principal); Z95.2 Presence of prosthetic heart valve; I25.10 Atherosclerotic heart disease of native coronary artery without angina pectoris; E78.5 Hyperlipidemia, unspecified | CPT/HCPCS: 80053; 80061; 85025 ==

== ENCOUNTER 2025-05-23 13:03 | Outpatient (RCR) | payer SELFPAY | END 2025-06-20 23:59 | disposition home or self-care (01) | LOC: CR 13:03 | PROVIDERS: PCP Family Medicine; Referring Provider Family Medicine; Visit Provider Family Medicine | DX: Z95.2 Presence of prosthetic heart valve (principal) ==

== ENCOUNTER → 2025-05-24 15:05 | Outpatient (BNVA) | payer MEDICARE, SELFPAY | PROVIDERS: PCP Family Medicine; Visit Provider Internal Medicine | DX: I25.10 Atherosclerotic heart disease of native coronary artery without angina pectoris (principal); I10 Essential (primary) hypertension; I35.0 Nonrheumatic aortic (valve) stenosis; Z79.82 Long term (current) use of aspirin; Z95.2 Presence of prosthetic heart valve; Z95.1 Presence of aortocoronary bypass graft; Z86.73 Personal history of transient ischemic attack (TIA), and cerebral infarction without residual deficits | CPT/HCPCS: 99214 ==

== ENCOUNTER 2025-06-21 11:44 | Outpatient (RCR) | payer SELFPAY | END 2025-07-21 23:59 | disposition home or self-care (01) | LOC: CR 11:44 | PROVIDERS: PCP Family Medicine; Referring Provider Family Medicine; Visit Provider Family Medicine | DX: Z95.2 Presence of prosthetic heart valve (principal) ==

== ENCOUNTER 2025-07-22 13:37 | Outpatient (RCR) | payer SELFPAY | END 2025-08-20 23:59 | disposition home or self-care (01) | LOC: CR 13:37 | PROVIDERS: PCP Family Medicine; Referring Provider Family Medicine; Visit Provider Family Medicine | DX: Z95.2 Presence of prosthetic heart valve (principal) ==

== ENCOUNTER 2025-08-21 12:30 | Outpatient (RCR) | payer SELFPAY | END 2025-09-20 23:59 | disposition home or self-care (01) | LOC: CR 12:30 | PROVIDERS: PCP Family Medicine; Referring Provider Family Medicine; Visit Provider Family Medicine | DX: Z95.2 Presence of prosthetic heart valve (principal) ==